=== PATIENT | male | born 1970 | race Caucasian/White ===

== ENCOUNTER 2022-02-20 05:11 | Emergency (ER) | payer OTHER, SELFPAY ==
--- NOTE | ~2022-02-20 | CT_ITS ---
EXAMINATION: CT ABDOMEN AND PELVIS WITHOUT CONTRAST CLINICAL INFORMATION: Flank pain. COMPARISON: CT of the abdomen and pelvis done on 10/04/2007. TECHNIQUE: Multidetector volumetric imaging was performed from the superior aspect of the liver through the pubic symphysis. Sagittal and coronal reformatted images were obtained on the technologist's workstation. This CT examination was performed using dose optimization techniques as appropriate, variously including the following: *Automated exposure control *Adjustment of mA and/or kV according to patient size (this includes techniques or standardized protocols for targeted exams where dose is matched to indication/reason for exam; i.e. extremities or head) *Use of iterative reconstruction technique DLP: 1300 mGy-cm FINDINGS: LUNG BASES: The visualized lung bases are unremarkable. LIVER, GALLBLADDER, AND BILIARY TREE: Diffuse hepatic hypodensity consistent with hepatic steatosis is present. No superimposed focal liver lesion on this nonenhanced study. Tiny wall calcifications versus calculi are seen within the gallbladder, new since prior study. No evidence of any gallbladder wall thickening or pericholecystic fluid or features of biliary obstruction. PANCREAS: Unremarkable. SPLEEN: Unremarkable. ADRENAL GLANDS: Unremarkable. KIDNEYS AND URETERS: The right kidney is normal in size, shape, and attenuation. No hydronephrosis, hydroureter, or calculi seen. No perinephric stranding. There is a 0.6 cm maximum dimension radiopaque calculus seen within the mid left ureter at the level of superior endplate of L5 vertebral body with maximum Hounsfield value of 777, producing proximal mild to moderate hydroureteronephrosis. An additional tiny punctate millimeter size nonobstructing calculus is also noted at the superior calyx of the left kidney. Mild perinephric stranding is present. BLADDER: Unremarkable. GASTROINTESTINAL TRACT: Focal colonic wall thickening and underlying colonic diverticuli are present involving the proximal sigmoid colon, consistent with diverticulosis. No superimposed CT evidence of focal diverticulitis. Significant fecal residual is noted within the large bowel. The appendix is visualized at right iliac fossa and is morphologically unremarkable. The small bowel loops are decompressed. Small sliding hiatal hernia is present. The stomach is decompressed. ABDOMINAL WALL: No significant hernia is appreciated. LYMPH NODES: Normal. VASCULAR: Unremarkable. PELVIC VISCERA: Unremarkable. OSSEOUS STRUCTURES: Unremarkable. CT/CT abdomen pelvis wo con IMPRESSION: 1. There is a 0.6 cm maximum dimension radiopaque calculus seen within the mid left ureter at the level of superior endplate of L5 vertebral body with maximum Hounsfield value of 777, producing proximal mild to moderate left-sided hydroureteronephrosis and mild perinephric stranding. Note is also made of additional 1 mm tiny punctate nonobstructing calculus seen at the superior calyx of the left kidney. 2. No other radiopaque urinary tract calculi within the remainder of the urinary tract on either side including the bladder. 3. Diffuse hepatic hypodensity consistent with fatty liver. 4. Tiny wall calcifications versus calculi within the gallbladder, new since prior study dated 10/04/2007. 5. Colonic diverticulosis without any CT features of superimposed acute diverticulitis. Fleischner guidelines were followed.
[2022-02-20 05:21] VITALS: BP 189/97; PULSE 96; RESP 20; TEMP 36.9; O2SAT 100; BMI 100.9
[2022-02-20 05:29] LABS: Hematocrit 42.2 % (42.0-52.0); Hemoglobin 14.7 g/dl (14.0-18.0); Mean Corpuscular HGB Conc 34.8 g/dl (31.0-36.0); Mean Corpuscular Hemoglobin 29.2 pg (27.0-33.0); Mean Corpuscular Volume 83.9 fL (80.0-98.0); Platelet Count 274 X10*3/uL (160-400); Red Blood Count 5.03 X10*6/uL (4.60-5.80); Red Cell Distribution Width 12.7 % (11.0-16.0); White Blood Count 10.9 X10*3/uL (4.8-10.8)
[2022-02-20 05:42] LABS: Appearance Urine CLEAR; Color Urine YELLOW; Glucose Urine UA NEG (NEG); Leukocyte Esterase Urine NEG (NEG); Nitrite Urine NEG (NEG); Specific Gravity - Urine >= 1.030 (1.005-1.025); UACC Culture Trigger NO; Urine Blood 3+ (NEG); Urine Ketones NEG (NEG); Urine Protein 1+ MG/DL (NEG-TRACE)
[2022-02-20 05:43] LABS: Alanine Aminotransferase 35 U/L (0-40); Albumin Level 4.2 g/dL (3.5-5.0); Alkaline Phosphatase 94 U/L (39-117); Anion Gap 17 (12-20); Aspartate Amino Transferase 24 U/L (5-37); Bilirubin Total 0.6 mg/dL (0.0-1.0); Blood Urea Nitrogen 22 mg/dL (9-16); Calcium 9.2 mg/dL (8.4-10.2); Carbon Dioxide 27 mmol/L (22-29); Chloride 98 mmol/L (96-108); Estimated Glomerular Filt Rate 59; Glucose Random 117 mg/dL (60-115); Lipase 61 U/L (8-78); Potassium 3.1 mmol/L (3.3-5.1); Sodium 139 mmol/L (135-145); Total Protein 7.7 g/dL (6.5-8.0)
[2022-02-20 05:49] LABS: Bacteria Urine 1+ /LPF; Squamous Epithelial Cell Urine 1+ /LPF
[2022-02-20] MEDS: Ondansetron ODT 4 MG TAB.RAPDIS TRANSLINGU (07:37)
[2022-02-20] MEDS: Ibuprofen 600 MG TABLET PO (07:37)
--- NOTE | 2022-02-20 08:12 | ED_ITS ---
HPI - Abdominal Pain General Chief Complaint: Abdominal Pain Stated Complaint: Back pain, radiates down body Time Seen by Provider: 02/20/22 08:03 Source: patient Mode of arrival: ambulatory Limitations: no limitations History of Present Illness HPI narrative: 51-year-old male with history of hypertension, high cholesterol presents with left-sided flank pain with radiation into the left testicle with waking today. Patient denies any associated nausea, vomiting, diarrhea, fevers, chills, urinary symptoms. Patient was over the last 2 weeks he has had intermittent left-sided back pain which seems to last for several minutes to 1 hour but then resolved without intervention. Related Data Previous Rx's Medication Instructions Recorded ibuprofen 800 mg tablet 800 mg PO Q8H PRN pain #30 tabs 02/20/22 tamsulosin 0.4 mg capsule (Flomax) 0.4 mg PO DAILY #30 caps 02/20/22 Allergies Allergy/AdvReac Type Severity Reaction Status Date / Time penicillin G [Penicillin G] Allergy Mild UNKNOWN Unverified 03/25/20 15:16 Review of Systems Review of Systems Yes all other systems are reviewed and are negative Constitutional: Reports no additional constitutional complaints, Denies body ache(s), Denies chills, Denies fever(s), Denies headache(s) and Denies weakness Eyes: Reports no additional eye complaints and Denies change in vision Reports system reviewed and no additional complaints, except as documented, Denies dizziness, Denies headache(s), Denies nasal congestion, Denies nasal discharge and Denies neck pain Cardiovascular: Reports no additional cardiovascular complaints, Denies chest pain, Denies leg edema and Denies dyspnea Respiratory: Reports no additional respiratory complaints, Denies cough and Denies dyspnea Gastrointestinal: Reports no additional gastrointestinal complaints, Denies abdominal pain, Denies diarrhea, Denies nausea and Denies vomiting Genitourinary: Reports flank pain, Reports testicular pain and Denies urinary incontinence Musculoskeletal: Reports no additional musculoskeletal complaints, Reports back pain, Denies arthralgias, Denies joint swelling, Denies neck pain, Denies numbness and Denies tingling Skin/Breast: Reports system reviewed and no additional complaints, except as docu and Denies rash Reports system reviewed and no additional complaints, except as documented, Denies dizziness, Denies headache(s), Denies numbness, Denies tingling and Denies weakness PMFSH Past Medical History Attestation statement: The following information was validated with the patient. Source: old records reviewed and nursing notes reviewed Social History Social History Advance Directives: Yes Advance Directives Information Provided: Yes Advance Directives on File: No Physical Exam ED Vital Signs: Vital Signs - 24 hr 02/20/22 05:21 Temperature 98.5 F Pulse Rate 96 Respiratory Rate 20 Blood Pressure 189/97 H Pulse Oximetry 100 Oxygen Delivery Method Room Air BMI result Body Mass Index 100.9 Const General: cooperative, healthy appearing, comfortable and no acute distress Orientation/consciousness: patient oriented x3 Limitations: no limitations HENMT Head: Yes normal to inspection Ears: hearing grossly normal bilaterally Eyes General: appearance normal, both eyes and all related structures Pupils: Equal, round and reactive pupils present Neck Neck: Yes normal visual inspection, Yes full ROM, Yes no lymphadenopathy and Yes no meningeal signs Chest Chest palpation & inspection: normal inspection of the chest Resp Effort & Inspection: normal respiratory effort Cardio Peripheral pulses: Peripheral pulses 2+ throughout GI Inspection: Yes normal to inspection Palpation (GI): Soft to palpation and nontender General: Yes CVA tenderness on the left Back/Spine/Pelvis Back: CVA tenderness Skin General skin exam: no rashes or lesions noted Neuro General: patient oriented x3, moves all extremities and no meningeal signs Cranial nerves: Yes Equal, round and reactive pupils present Extrem General: Yes normal to inspection Course Course Course Narrative: CT shows There is a 0.6 cm maximum dimension radiopaque calculus seen within the mid left ureter at the level of superior endplate of L5 vertebral body with maximum Hounsfield value of 777, producing proximal mild to moderate left-sided hydroureteronephrosis and mild perinephric stranding. Note is also made of additional 1 mm tiny punctate nonobstructing calculus seen at the superior calyx of the left kidney. - labs show mild hypokalemia which is likely secondary to diuretic use. P atient received oral replacement. All other labs are unremarkable. Urine shows microscopic hematuria with no signs of infection. Patient's pain is resolved after receiving 600 mg of oral ibuprofen. tolerating p.o.. afebrile. I discussed the findings of the CT scan with the patient as well as Urology Dr. Woods. patient can follow-up in the office with Urology outpatient. reviewed worrisome signs and symptoms with the patient such as fever, severe pain, intractable vomiting and when to return to the emergency room. Comfortable plan for discharge home MDM - Abdominal Pain MDM Narrative Medical decision making narrative: 51-year-old male with history of hypertension and hyperlipidemia presents with left-sided flank pain with radiation to the left testicle with waking this morning. No associated symptoms. Patient on exam has left CVA tenderness. Deferred exam. Vitals are stable. Abdomen soft nontender. Will need labs, UA, CT. Patient will be given IV fluids, NSAID Differential Diagnosis Differential diagnosis: Likely renal colic Medical Records Attestation: I reviewed the patient's medical records. Lab Data Attestation: I reviewed the patient's lab results. Result diagrams: 02/20/22 05:19 02/20/22 05:19 Labs: Lab Results 02/20/22 02/20/22 02/20/22 Range/Units 05:19 05:19 05:26 WBC 10.9 H (4.8-10.8) X10*3/uL RBC 5.03 (4.60-5.80) X10*6/uL Hgb 14.7 (14.0-18.0) g/dl Hct 42.2 (42.0-52.0) % MCV 83.9 (80.0-98.0) fL MCH 29.2 (27.0-33.0) pg MCHC 34.8 (31.0-36.0) g/dl RDW 12.7 (11.0-16.0) % Plt Count 274 (160-400) X10*3/uL MPV 10.0 (9.4-12.4) fL Absolute Nucleated RBC 0.000 (0.0-0.012) X10*3/uL Nucleated RBC % (auto) 0.0 (0.0-0.2) /100WBC Sodium 139 (135-145) mmol/L Potassium 3.1 L (3.3-5.1) mmol/L Chloride 98 (96-108) mmol/L Carbon Dioxide 27 (22-29) mmol/L Anion Gap 17 (12-20) BUN 22 H (9-16) mg/dL Creatinine 1.29 (0.5-1.4) mg/dL Estim Creat Clear Calc 163.0 Estimated GFR 59 Random Glucose 117 H (60-115) mg/dL Calcium 9.2 (8.4-10.2) mg/dL Total Bilirubin 0.6 (0.0-1.0) mg/dL AST 24 (5-37) U/L ALT 35 (0-40) U/L Alkaline Phosphatase 94 (39-117) U/L Total Protein 7.7 (6.5-8.0) g/dL Albumin 4.2 (3.5-5.0) g/dL Lipase 61 (8-78) U/L Urine Color YELLOW Urine Appearance CLEAR Urine pH 6.0 (5.0-8.0) Ur Specific [place] >= 1.030 H (1.005-1.025) Urine Protein 1+ H (NEG-TRACE) MG/DL Urine Glucose (UA) NEG (NEG) MG/DL Urine Ketones NEG (NEG) MG/DL Urine Blood 3+ H (NEG) Urine Nitrite NEG (NEG) Ur Leukocyte Esterase NEG (NEG) Urine RBC 10-14 H (0) /HPF Urine WBC 1-4 (0-4) /HPF Ur Squamous Epith Cells 1+ /LPF Urine Bacteria 1+ /LPF Imaging Data CT scan - abdomen: Attestation: I personally reviewed and interpreted this imaging study as follows: Radiologist's impression: [place] [id number] CT Scan Report Signed Patient: Frank Terrell MR#: [id number] : 1970 Acct:[id number] Age/Sex: 51 / M ADM Date: 02/20/22 Loc: .ED Attending Dr: Ordering Physician: Jeanine Mcduffie NP Date of Service: 02/20/22 Procedure(s): CT abdomen pelvis wo [facility] Accession Number(s): [id number] cc: Jeanine Mcduffie NP~ EXAMINATION: CT ABDOMEN AND PELVIS WITHOUT CONTRAST? CLINICAL INFORMATION: Flank pain.? COMPARISON: CT of the abdomen and pelvis done on 10/04/2007. TECHNIQUE: Multidetector volumetric imaging was performed from the superior aspect of the liver through the pubic symphysis. Sagittal and coronal reformatted images were obtained on the technologist's workstation.? This CT examination was performed using dose optimization techniques as appropriate, variously including the following: *Automated exposure control *Adjustment of mA and/or kV according to patient size (this includes techniques or standardized protocols for targeted exams where dose is matched to indication/reason for exam; i.e. extremities or head) *Use of iterative reconstruction technique DLP: 1300 mGy-cm FINDINGS: LUNG BASES: The visualized lung bases are unremarkable.? LIVER, GALLBLADDER, AND BILIARY TREE: Diffuse hepatic hypodensity consistent with hepatic steatosis is present. No superimposed focal liver lesion on this nonenhanced study. Tiny wall calcifications versus calculi are seen within the gallbladder, new since prior study. No evidence of any gallbladder wall thickening or pericholecystic fluid or features of biliary obstruction. PANCREAS: Unremarkable.? SPLEEN: Unremarkable.? ADRENAL GLANDS: Unremarkable.? KIDNEYS AND URETERS: The right kidney is normal in size, shape, and attenuation. No hydronephrosis, hydroureter, or calculi seen. No perinephric stranding.? There is a 0.6 cm maximum dimension radiopaque calculus seen within the mid left ureter at the level of superior endplate of L5 vertebral body with maximum Hounsfield value of 777, producing proximal mild to moderate hydroureteronephrosis. An additional tiny punctate millimeter size nonobstructing calculus is also noted at the superior calyx of the left kidney. Mild perinephric stranding is present. BLADDER: Unremarkable.? GASTROINTESTINAL TRACT: Focal colonic wall thickening and underlying colonic diverticuli are present involving the proximal sigmoid colon, consistent with diverticulosis. No superimposed CT evidence of focal diverticulitis. Significant fecal residual is noted within the large bowel. The appendix is visualized at right iliac fossa and is morphologically unremarkable. The small bowel loops are decompressed. Small sliding hiatal hernia is present. The stomach is decompressed.? ABDOMINAL WALL: No significant hernia is appreciated.? LYMPH NODES: Normal. VASCULAR: Unremarkable. PELVIC VISCERA: Unremarkable.? OSSEOUS STRUCTURES: Unremarkable.? CT/CT abdomen pelvis wo con IMPRESSION: ? 1. There is a 0.6 cm maximum dimension radiopaque calculus seen within the mid left ureter at the level of superior endplate of L5 vertebral body with maximum Hounsfield value of 777, producing proximal mild to moderate left-sided hydroureteronephrosis and mild perinephric stranding. Note is also made of additional 1 mm tiny punctate nonobstructing calculus seen at the superior calyx of the left kidney. 2. No other radiopaque urinary tract calculi within the remainder of the urinary tract on either side including the bladder. 3. Diffuse hepatic hypodensity consistent with fatty liver. 4. Tiny wall calcifications versus calculi within the gallbladder, new since prior study dated 10/04/2007. 5. Colonic diverticulosis without any CT features of superimposed acute diverticulitis.? Discharge Plan Discharge Clinical Impression: Calculus of kidney Patient Disposition: Home, Self-Care Instructions: Kidney Stones (ED) Additional Instructions: call you the urologist for follow-up return for fever, multiple episodes of vomiting, severe pain Prescriptions: New tamsulosin [Flomax] 0.4 mg capsule 0.4 mg PO DAILY Qty: 30 0RF ibuprofen 800 mg tablet 800 mg PO Q8H PRN (Reason: pain) Qty: 30 0RF Referrals: aDljit Woods MD [Physician] - 5 days Stand Alone Forms: Work/School Release Interventions: ED Discharge Assessment Last Done: 02/20/22 10:07 Discharge Date/Time: 02/20/22 10:08
[2022-02-20] MEDS: 0.9 % Sodium Chloride 1,000 ML 999 ML IV (09:15)
[2022-02-20] MEDS: Potassium Chloride ER 20 MEQ TAB.ER.PRT 40 MEQ PO (09:20)
== END 2022-02-20 10:08 | disposition home or self-care (01) ==
PROVIDERS: Emergency Provider Emergency Medicine
DX: N13.2 Hydronephrosis with renal and ureteral calculous obstruction (principal); E87.6 Hypokalemia; I10 Essential (primary) hypertension; E78.5 Hyperlipidemia, unspecified; E66.01 Morbid (severe) obesity due to excess calories; Z68.45 Body mass index [BMI] 70 or greater, adult
CPT/HCPCS: 36415; 74176; 80053; 81001; 83690; 85027; 99283; 99284

== ENCOUNTER 2022-02-27 06:11 | Day surgery (SDC) | payer OTHER, SELFPAY ==
[2022-02-27] VITALS (12 sets, daily range): BP systolic 142–193; BP diastolic 71–97; PULSE 54–78; RESP 15–20; TEMP 36.1–36.6; O2SAT 93–98; BMI 45.8
--- NOTE | ~2022-02-27 | CT_ITS ---
EXAMINATION: CT ABDOMEN AND PELVIS WITHOUT CONTRAST CLINICAL INFORMATION: Left flank pain, rule out stone. COMPARISON: 02/20/2022 CT scan of the abdomen and pelvis. TECHNIQUE: Multidetector volumetric imaging was performed from the superior aspect of the liver through the pubic symphysis. Sagittal and coronal reformatted images were obtained on the technologist's workstation. Lack of intravenous and oral contrast limits visceral evaluation. This CT examination was performed using dose optimization techniques as appropriate, variously including the following: *Automated exposure control *Adjustment of mA and/or kV according to patient size (this includes techniques or standardized protocols for targeted exams where dose is matched to indication/reason for exam; i.e. extremities or head) *Use of iterative reconstruction technique DLP: 1141 mGy-cm FINDINGS: LUNG BASES: The visualized lung bases are unremarkable. LIVER, GALLBLADDER, AND BILIARY TREE: Unremarkable. PANCREAS: Unremarkable. SPLEEN: Unremarkable. ADRENAL GLANDS: Unremarkable. KIDNEYS AND URETERS: Left kidney mild to moderate left hydronephrosis and perinephric stranding caused by a 0.9 cm calculus (HU 694) in the mid one third of the left ureter (image 68, series 5). No intrarenal calculi bilaterally. No right hydronephrosis. BLADDER: Moderate distention without focal abnormality. GASTROINTESTINAL TRACT: The stomach, small bowel and appendix are unremarkable. The colon shows mild diverticulosis distally without surrounding abnormality. The rectum is unremarkable. ABDOMINAL WALL: No significant hernia is appreciated. LYMPH NODES: No lymphadenopathy. VASCULAR: Unremarkable. PELVIC VISCERA: Mild prostatomegaly and mild central coarse calcifications. OSSEOUS STRUCTURES: Mild disc space narrowing and mild grade 1 retrolisthesis of L5-S1 without other significant abnormality. CT/CT abdomen pelvis wo con IMPRESSION: 1. Mild to moderate left hydroureteronephrosis and perinephric stranding caused by a 0.9 cm calculus in the mid one third of the left ureter. Findings have not significantly changed from the 02/20/2022 study. 2. Mild distal colonic diverticulosis without evidence for acute diverticulitis.
[2022-02-27 08:05] LABS: Appearance Urine Clear; Color Urine Yellow; Glucose Urine UA Negative (Negative); Leukocyte Esterase Urine Negative (Negative); Nitrite Urine Negative (Negative); Specific Gravity - Urine 1.015 (1.005-1.025); Urine Blood Small (1+) (Negative); Urine Ketones Negative (Negative); Urine Protein Negative (Neg-Trace)
[2022-02-27 08:08] LABS: Bacteria Urine None Seen (None Seen); Hyaline Casts Urine 0-2 /LPF (0-2); Squamous Epithelial Cell Urine 0-2 /HPF (0-2); WBC Urine 0-5 /HPF (0-5)
[2022-02-27 09:13] LABS: Basophils Absolute Auto 0.1 X10*3/uL (0.0-0.2); Basophils Percent Auto 0.4 % (0-2); Eosinophils Absolute Auto 0.1 X10*3/uL (0.0-0.4); Eosinophils Percent Auto 0.5 % (0-4); Hematocrit 42.5 % (42.0-52.0); Hemoglobin 14.7 g/dl (14.0-18.0); Imm Gran Abs Auto 0.09 X10*3/uL (0.00-0.03); Imm Gran Pct Auto 0.6 % (0.0-0.4); Lymphocytes Absolute Auto 2.4 X10*3/uL (1.2-4.9); Lymphocytes Percent Auto 16.2 % (20-40); MANUAL DIFF FLAG SCAN; Mean Corpuscular HGB Conc 34.6 g/dl (31.0-36.0); Mean Corpuscular Hemoglobin 29.1 pg (27.0-33.0); Mean Corpuscular Volume 84.2 fL (80.0-98.0); Monocytes Absolute Auto 1.5 X10*3/uL (0.1-1.2); Monocytes Percent Auto 10.5 % (2-11); Neutrophils Absolute Auto 10.4 x10*3/uL (2.0-8.3); Neutrophils Percent Auto 71.8 % (45-73); Platelet Count 262 X10*3/uL (160-400); Red Blood Count 5.05 X10*6/uL (4.60-5.80); SCAN SMEAR FLAG 1; White Blood Count 14.5 X10*3/uL (4.8-10.8)
--- NOTE | 2022-02-27 09:30 | ED.ABDPAIN ---
HPI - Abdominal Pain General Chief Complaint: Abdominal Pain Stated Complaint: kidney stone Time Seen by Provider: 02/27/22 08:20 Source: patient Mode of arrival: ambulatory History of Present Illness HPI narrative: Patient presented with left flank pain, he was seen in this emergency department on February 20 diagnosed with the left kidney stone, pain is no better. Denies any fever and chills MD elicited complaint: flank pain Pertinent past history: none Onset (ago): week(s) (1) Pain Consistency: constant Location: L flank Severity: moderate Radiation: none Exacerbating factors: nothing Relieving factors: nothing Related Data Previous Rx's Medication Instructions Recorded ibuprofen 800 mg tablet 800 mg PO Q8H PRN pain #30 tabs 02/20/22 prednisone 20 mg tablet 20 mg PO DAILY 5 days #5 tabs 02/20/22 tamsulosin 0.4 mg capsule (Flomax) 0.4 mg PO DAILY #30 caps 02/20/22 Allergies Allergy/AdvReac Type Severity Reaction Status Date / Time penicillin G [Penicillin G] Allergy Mild UNKNOWN Verified 02/27/22 09:49 Review of Systems Review of Systems Yes all other systems are reviewed and are negative Cardiovascular: Reports no additional cardiovascular complaints Respiratory: Reports no additional respiratory complaints Gastrointestinal: Reports no additional gastrointestinal complaints Musculoskeletal: Reports no additional musculoskeletal complaints PMF Social History Social History Alcohol intake: current Alcohol intake frequency: a few times a week Patient Tobacco Use Status: Never used Tobacco Use of substances other than those prescribed or required for medical reasons: No Advance Directives: Yes Advance Directives Information Provided: No Advance Directives on File: No Physical Exam ED Vital Signs: Vital Signs - 24 hr 02/27/22 06:43 02/27/22 10:00 02/27/22 10:43 Temperature 97.7 F Pulse Rate 73 60 58 Respiratory Rate 16 18 16 Blood Pressure 150/84 H 170/97 H 168/84 H Pulse Oximetry 96 97 98 Oxygen Delivery Method Room Air Room Air Room Air 02/27/22 12:53 Temperature Pulse Rate 62 Respiratory Rate 16 Blood Pressure 161/72 H Pulse Oximetry 98 Oxygen Delivery Method Room Air BMI result Body Mass Index 45.8 Const General: cooperative HENMT Head: Yes normal to inspection General nose exam: Normal external nose present Face and sinus: Yes normal facial exam Mouth: Normal oral and palatal mucosa present Throat: Yes posterior oropharynx normal Neck Neck: Yes normal visual inspection and Yes full ROM Chest Chest palpation & inspection: normal inspection of the chest Resp Effort & Inspection: normal respiratory effort Auscultation: clear to auscultation bilaterally Cardio Jugular venous distension: no JVD Rate: regular rate Rhythm: regular rhythm GI Inspection: Yes normal to inspection Palpation (GI): Soft to palpation and Other GI palpation findings present (tenderness left flank) Auscultation: normal bowel sounds Course Reevaluation(s) Reevaluation #1: d/w Dr Woods will take pt to OR MDM - Abdominal Pain Lab Data Result diagrams: 02/27/22 09:04 02/27/22 09:04 Labs: Lab Results 02/27/22 02/27/22 02/27/22 Range/Units 07:42 09:04 09:04 WBC 14.5 H (4.8-10.8) X10*3/uL RBC 5.05 (4.60-5.80) X10*6/uL Hgb 14.7 (14.0-18.0) g/dl Hct 42.5 (42.0-52.0) % MCV 84.2 (80.0-98.0) fL MCH 29.1 (27.0-33.0) pg MCHC 34.6 (31.0-36.0) g/dl RDW 13.0 (11.0-16.0) % Plt Count 262 (160-400) X10*3/uL MPV 10.0 (9.4-12.4) fL Immature Gran % (Auto) 0.6 H (0.0-0.4) % Neut % (Auto) 71.8 (45-73) % Lymph % (Auto) 16.2 L (20-40) % [place] % (Auto) 10.5 (2-11) % Eos % (Auto) 0.5 (0-4) % Baso % (Auto) 0.4 (0-2) % Lymph # (Auto) 2.4 (1.2-4.9) X10*3/uL [place] # (Auto) 1.5 H (0.1-1.2) X10*3/uL Eos # (Auto) 0.1 (0.0-0.4) X10*3/uL Baso # (Auto) 0.1 (0.0-0.2) X10*3/uL Abs Immat Gran (auto) 0.09 H (0.00-0.03) X10*3/uL Absolute Neuts (auto) 10.4 H (2.0-8.3) x10*3/uL Absolute Nucleated RBC 0.000 (0.0-0.012) X10*3/uL Nucleated RBC % (auto) 0.0 (0.0-0.2) /100WBC Smear Tech's Comments VERIFIED Sodium 141 (135-145) mmol/L Potassium 3.5 (3.3-5.1) mmol/L Chloride 97 (96-108) mmol/L Carbon Dioxide 32 H (22-29) mmol/L Anion Gap 16 (12-20) BUN 21 H (9-16) mg/dL Creatinine 1.41 H (0.5-1.4) mg/dL Estim Creat Clear Calc 87.4 Estimated GFR 53 Random Glucose 114 (60-115) mg/dL Calcium 10.6 H D (8.4-10.2) mg/dL Urine Color Yellow Urine Appearance Clear Urine pH 7.0 (5.0-8.0) Ur Specific [place] 1.015 (1.005-1.025) Urine Protein Negative (Neg-Trace) mg/dL Urine Glucose (UA) Negative (Negative) mg/dL Urine Ketones Negative (Negative) mg/dL Urine Blood Small (1+) H (Negative) Urine Nitrite Negative (Negative) Ur Leukocyte Esterase Negative (Negative) Urine RBC 6-10 H (0-2) /HPF Urine WBC 0-5 (0-5) /HPF Ur Squamous Epith Cells 0-2 (0-2) /HPF Urine Bacteria None Seen (None Seen) Hyaline Casts 0-2 (0-2) /LPF 02/27/ Range/Units 09:59 WBC (4.8-10.8) X10*3/uL RBC (4.60-5.80) X10*6/uL Hgb (14.0-18.0) g/dl Hct (42.0-52.0) % MCV (80.0-98.0) fL MCH (27.0-33.0) pg MCHC (31.0-36.0) g/dl RDW (11.0-16.0) % Plt Count (160-400) X10*3/uL MPV (9.4-12.4) fL Immature Gran % (Auto) (0.0-0.4) % Neut % (Auto) (45-73) % Lymph % (Auto) (20-40) % [place] % (Auto) (2-11) % Eos % (Auto) (0-4) % Baso % (Auto) (0-2) % Lymph # (Auto) (1.2-4.9) X10*3/uL [place] # (Auto) (0.1-1.2) X10*3/uL Eos # (Auto) (0.0-0.4) X10*3/uL Baso # (Auto) (0.0-0.2) X10*3/uL Abs Immat Gran (auto) (0.00-0.03) X10*3/uL Absolute Neuts (auto) (2.0-8.3) x10*3/uL Absolute Nucleated RBC (0.0-0.012) X10*3/uL Nucleated RBC % (auto) (0.0-0.2) /100WBC Smear Tech's Comments Sodium (135-145) mmol/L Potassium (3.3-5.1) mmol/L Chloride (96-108) mmol/L Carbon Dioxide (22-29) mmol/L Anion Gap (12-20) BUN (9-16) mg/dL Creatinine (0.5-1.4) mg/dL Estim Creat Clear Calc Estimated GFR Random Glucose (60-115) mg/dL Calcium (8.4-10.2) mg/dL Urine Color Yellow Urine Appearance Clear Urine pH 7.5 (5.0-8.0) Ur Specific [place] 1.010 (1.005-1.025) Urine Protein Negative (Neg-Trace) mg/dL Urine Glucose (UA) Negative (Negative) mg/dL Urine Ketones Negative (Negative) mg/dL Urine Blood Negative (Negative) Urine Nitrite Negative (Negative) Ur Leukocyte Esterase Negative (Negative) Urine RBC 0-2 (0-2) /HPF Urine WBC 0-5 (0-5) /HPF Ur Squamous Epith Cells 0-2 (0-2) /HPF Urine Bacteria None Seen (None Seen) Hyaline Casts 0-2 (0-2) /LPF Imaging Data CT scan - abdomen: Radiologist's impression: rkable.? ABDOMINAL WALL: No significant hernia is appreciated.? LYMPH NODES: No lymphadenopathy. VASCULAR: Unremarkable. PELVIC VISCERA: Mild prostatomegaly and mild central coarse calcifications.? OSSEOUS STRUCTURES: Mild disc space narrowing and mild grade 1 retrolisthesis of L5-S1 without other significant abnormality.? CT/CT abdomen pelvis wo con IMPRESSION: 1. Mild to moderate left hydroureteronephrosis and perinephric stranding caused by a 0.9 cm calculus in the mid one third of the left ureter. Findings have not significantly changed from the 02/20/2022 study. 2. Mild distal colonic diverticulosis without evidence for acute diverticulitis. ? ? Dictated By: Arnulfo Mandel MD Signed By: <Electronically signed by Arnulfo Madnel MD in [place]> 02/27/22 1105 DD/ 0945 TD/TT:? Assembly Technician: Discharge Plan Discharge Clinical Impression: Ureteric stone Patient Disposition: Admitted As Inpatient
[2022-02-27 09:31] LABS: SLIDE REVIEW VERIFIED
[2022-02-27 09:35] LABS: Anion Gap 16 (12-20); Blood Urea Nitrogen 21 mg/dL (9-16); Calcium 10.6 mg/dL (8.4-10.2); Carbon Dioxide 32 mmol/L (22-29); Chloride 97 mmol/L (96-108); Creatinine Clr Calc Pharmacy 87.4; Estimated Glomerular Filt Rate 53; Glucose Random 114 mg/dL (60-115); Potassium 3.5 mmol/L (3.3-5.1); Sodium 141 mmol/L (135-145)
[2022-02-27] MEDS: Ketorolac Tromethamine 30 MG/ML VIAL IVPUSH (09:57)
[2022-02-27 10:09] LABS: Appearance Urine Clear; Color Urine Yellow; Glucose Urine UA Negative (Negative); Leukocyte Esterase Urine Negative (Negative); Nitrite Urine Negative (Negative); PH 7.5 (5.0-8.0); Urine Blood Negative (Negative); Urine Ketones Negative (Negative); Urine Protein Negative (Neg-Trace)
[2022-02-27 10:11] LABS: Bacteria Urine None Seen (None Seen); Hyaline Casts Urine 0-2 /LPF (0-2); RBC Urine 0-2 /HPF (0-2); Squamous Epithelial Cell Urine 0-2 /HPF (0-2); WBC Urine 0-5 /HPF (0-5)
[2022-02-27] MEDS: 0.9 % Sodium Chloride 1,000 ML 999 ML IVCONT (10:40)
--- NOTE | 2022-02-27 12:33 | P.CNUR_ITS ---
History of Present Illness Consult details Consult date: 02/27/22 Narrative: Consulting complaint left ureteric stone mid 52-year-old male. Presents with left flank pain. [place] Seen February 20 with kidney stone. Attempted medical expulsion therapy. Pain has not improved. Maximum 8 on 10. Minimal radiation. Has been constant. Associated nausea. No fever or vomiting. Denies hematuria or dysuria. WBC 14.5, calcium 10.6, creatinine 1.4 - these are elevated from baseline CT scan performed Left kidney mild to moderate left hydronephrosis and perinephric stranding caused by a 0.9 cm calculus (HU 694) in the mid one third of the left ureter (image 68, series 5). No intrarenal calculi bilaterally. No right hydronephrosis. Review of Systems Constitutional: Constitutional: Reports as per HPI and Reports no additional constitutional complaints Cardiovascular: Cardiovascular: Reports as per HPI and Reports no additional cardiovascular complaints Respiratory: Respiratory: Reports as per HPI and Reports no additional respiratory complaints Gastrointestinal: Gastrointestinal: Reports as per HPI and Reports no additional gastrointestinal complaints Genitourinary: Genitourinary: Reports as per HPI Musculoskeletal: Musculoskeletal: Reports no additional musculoskeletal complaints and Reports as per HPI Neurologic: Reports system reviewed and no additional complaints, except as documented and Reports as per HPI [facility] Social History Social History Advance Directives: Yes Advance Directives Information Provided: No Advance Directives on File: No Meds Allergies Allergy/AdvReac Type Severity Reaction Status Date / Time penicillin G [Penicillin G] Allergy Mild UNKNOWN Verified 02/27/22 09:49 Physical Exam Vital Signs: Vital Signs: Last Vital Signs Temp 97.7 F 02/27/22 06:43 Pulse 58 02/27/22 10:43 Resp 16 02/27/22 10:43 BP 168/84 H 02/27/22 10:43 Pulse Ox 98 02/27/22 10:43 O2 Del Method 02/27/22 10:43 BMI result Body Mass Index 45.8 Const: General: cooperative, healthy appearing, comfortable and no acute distress Orientation/consciousness: patient oriented x3 HEENT: Face and sinus: Yes normal facial exam Mouth: moist mucous membranes Neck: Neck: Yes normal visual inspection, Yes full ROM and Yes trachea midline Chest: Chest palpation & inspection: normal inspection of the chest Resp: Effort & Inspection: normal respiratory effort, able to speak in complete sentences and no respiratory distress GI: Inspection: Yes normal to inspection Back/Spine/Pelvis: Cervical Spine: normal cervical lordosis Thoracic/Lumbar Spine: thoracic and lumbar spine normal to inspection Skin: General skin exam: no rashes or lesions noted Neuro: General: patient oriented x3, tone normal and moves all extremities Extrem: General: Yes normal to inspection and Yes capillary refill normal Results Labs Result diagrams: 02/27/22 09:04 02/27/22 09:04 Labs: Abnormal lab results 02/27/22 02/27/22 02/27/22 Range/Units 07:42 09:04 09:04 WBC 14.5 H (4.8-10.8) X10*3/uL Immature Gran % (Auto) 0.6 H (0.0-0.4) % Lymph % (Auto) 16.2 L (20-40) % [place] # (Auto) 1.5 H (0.1-1.2) X10*3/uL Abs Immat Gran (auto) 0.09 H (0.00-0.03) X10*3/uL Absolute Neuts (auto) 10.4 H (2.0-8.3) x10*3/uL Carbon Dioxide 32 H (22-29) mmol/L BUN 21 H (9-16) mg/dL Creatinine 1.41 H (0.5-1.4) mg/dL Calcium 10.6 H D (8.4-10.2) mg/dL Urine Blood Small (1+) H (Negative) Urine RBC 6-10 H (0-2) /HPF Short CBC 02/27/22 Range/Units 09:04 WBC 14.5 H (4.8-10.8) X10*3/uL Hgb 14.7 (14.0-18.0) g/dl Hct 42.5 (42.0-52.0) % Plt Count 262 (160-400) X10*3/uL BMP 02/27/22 09:04 Sodium 141 Potassium 3.5 Chloride 97 Carbon Dioxide 32 H BUN 21 H Creatinine 1.41 H Calcium 10.6 H D Urine 02/27/22 02/27/22 Range/Units 07:42 09:59 Urine Color Yellow Yellow Urine Appearance Clear Clear Urine pH 7.0 7.5 (5.0-8.0) Ur Specific [place] 1.015 1.010 (1.005-1.025) Urine Protein Negative Negative (Neg-Trace) mg/dL Urine Glucose (UA) Negative Negative (Negative) mg/dL All other labs normal. Assessment and Plan (1) Ureteric stone: Status: Acute Plan Ureteroscopy We discussed the nature of the decision and reasonable alternatives for performing the above surgery. Interventions include chemical dissolution, ESWL, ureteroscopy with laser lithotripsy and stent placement, PCNL. Options such as medical therapy were discussed. The relative uncertainties and benefits related to each alternate procedure were adequately discussed. General surgical risks including, but not limited to, pain, bleeding, infection, myocardial infarction, pulmonary embolus, deep vein thrombosis and cerebrovascular accident which may result in further hospitalization were discussed. Full disclosure of the procedure as well as all major risks, benefits and complications were discussed including but not limited to damage to the urethra, bladder and kidney infection, damage to the ureter, stent migration or malpositi on, scarring to the renal pelvis, remnant stone fragments, subsequent stone passage with need for secondary procedures. The overall secondary procedure rate is approximately 10-15%. The success rate of the procedure was discussed. Success of the procedure in the short-term does not necessarily guarantee that long-term success will be maintained. Suitable follow up will need to be maintained. The patient showed understanding of discussion and wishes to proceed with - cystoscopy, retrograde, ureteroscopy, possible lithotripsy/stone basketing and stent on the left side Procedures Date of Service Date of Service: 02/27/22
[2022-02-27] MEDS: HYDROmorphone HCl 0.5 MG/0.5 ML SYRINGE IVPUSH (13:06)
[2022-02-27 14:12] LABS: COVID-19 Test Negative (Negative); IDNOW Serial# 55D5AD1C
--- NOTE | 2022-02-27 14:47 | PHA.MEDREC ---
Pharmacy Consult ? Medication Reconciliation Pharmacy has completed the medication reconciliation.
--- NOTE | 2022-02-27 16:41 | PC.NURSE ---
report to PACU
--- NOTE | 2022-02-27 16:53 | P.CONAN_ITS ---
HPI - Anesthesia Eval Consult details Narrative: Left ureter stone PMFSH Active Problems Active Problems: All Active Problems (Updated 02/27/22 @ 12:59 by Hank Fraire MD) Ureteric stone (Acute) Past Medical History Medical History (Updated 02/27/22 @ 16:55 by Daljit Cheng MD) Hyperlipemia Hypertension Morbid (severe) obesity due to excess calories Family History Family history of problems with anesthesia: No Surgical History History of Problems with Anesthesia: No Social History Social History Alcohol intake: current Alcohol intake frequency: a few times a week Patient Tobacco Use Status: Never used Tobacco Use of substances other than those prescribed or required for medical reasons: No Advance Directives: Yes Advance Directives Information Provided: No Advance Directives on File: No Meds Allergies Allergy/AdvReac Type Severity Reaction Status Date / Time penicillin G [Penicillin G] Allergy Mild UNKNOWN Verified 02/27/22 09:49 Home Medications Medication Instructions Recorded Confirmed Last Taken Type amlodipine 5 mg tablet 1 tab PO DAILY 02/27/22 02/27/22 02/27/22 History atorvastatin 20 mg tablet 1 tab PO DAILY 02/27/22 02/27/22 02/27/22 History clonidine HCl 0.1 mg tablet 1 tab PO BID 02/27/22 02/27/22 02/27/22 History hydrochlorothiazide 25 mg tablet 1 tab PO DAILY 02/27/22 02/27/22 02/27/22 History losartan 100 mg tablet 1 tab PO DAILY 02/27/22 02/27/22 Unknown History Exam Exam Date and Time: February 27, 2022 165 Height,Weight and Vital Signs: Height 5 ft 9 in Weight 140.614 kg Last Vital Signs Temp 97.7 F 02/27/22 06:43 Pulse 54 02/27/22 14:44 Resp 18 02/27/22 14:44 BP 157/80 H 02/27/22 14:44 Pulse Ox 98 02/27/22 14:44 O2 Del Method 02/27/22 14:44 Pertinent Lab Results Pertinent Lab Results: Laboratory Tests 02/27/22 02/27/22 02/27/22 07:42 09:04 09:04 WBC 14.5 H RBC 5.05 Hgb 14.7 Hct 42.5 MCV 84.2 MCH 29.1 MCHC 34.6 RDW 13.0 Plt Count 262 MPV 10.0 Immature Gran % (Auto) 0.6 H Neut % (Auto) 71.8 Lymph % (Auto) 16.2 L [place] % (Auto) 10.5 Eos % (Auto) 0.5 Baso % (Auto) 0.4 Lymph # (Auto) 2.4 [place] # (Auto) 1.5 H Eos # (Auto) 0.1 Baso # (Auto) 0.1 Abs Immat Gran (auto) 0.09 H Absolute Neuts (auto) 10.4 H Absolute Nucleated RBC 0.000 Nucleated RBC % (auto) 0.0 Smear Tech's Comments VERIFIED Sodium 141 Potassium 3.5 Chloride 97 Carbon Dioxide 32 H Anion Gap 16 BUN 21 H Creatinine 1.41 H Estim Creat Clear Calc 87.4 Estimated GFR 53 Random Glucose 114 Calcium 10.6 H D Urine Color Yellow Urine Appearance Clear Urine pH 7.0 Ur Specific [place] 1.015 Urine Protein Negative Urine Glucose (UA) Negative Urine Ketones Negative Urine Blood Small (1+) H Urine Nitrite Negative Ur Leukocyte Esterase Negative Urine RBC 6-10 H Urine WBC 0-5 Ur Squamous Epith Cells 0-2 Urine Bacteria None Seen Hyaline Casts 0-2 COVID-19 (CARITO) COVID-19 Clin Com 02/27/22 02/27/22 09:59 13:49 WBC RBC Hgb Hct MCV MCH MCHC RDW Plt Count MPV Immature Gran % (Auto) Neut % (Auto) Lymph % (Auto) [place] % (Auto) Eos % (Auto) Baso % (Auto) Lymph # (Auto) [place] # (Auto) Eos # (Auto) Baso # (Auto) Abs Immat Gran (auto) Absolute Neuts (auto) Absolute Nucleated RBC Nucleated RBC % (auto) Smear Tech's Comments Sodium Potassium Chloride Carbon Dioxide Anion Gap BUN Creatinine Estim Creat Clear Calc Estimated GFR Random Glucose Calcium Urine Color Yellow Urine Appearance Clear Urine pH 7.5 Ur Specific [place] 1.010 Urine Protein Negative Urine Glucose (UA) Negative Urine Ketones Negative Urine Blood Negative Urine Nitrite Negative Ur Leukocyte Esterase Negative Urine RBC 0-2 Urine WBC 0-5 Ur Squamous Epith Cells 0-2 Urine Bacteria None Seen Hyaline Casts 0-2 COVID-19 (CARITO) Negative COVID-19 Clin Com See Note Airway Mallampati Class: III TM Dist: >3cm Neck ROM: Full Partial: Upper Loose/Missing/Broken Teeth: No Heart: RRR Lungs: CTA Assessment and Plan Assessment Anesthesia Assessment: Anesthesia Plan Discussed and Chart Reviewed Final Anesthetic Review Family History of Problems with Anesthesia: No History of Problems with Anesthesia: No NPO: Yes ASA Class: III and Emergency Final Preanesthetic Review: No Changes in Pt Med Stat, Meds/Allgs Chart Reviewed, Consent Obtained/Reviewed and Anes Risks/Benef Reviewed Patient Risk: Intermediate Procedure Risk: Low Anesthetic Plan Anesthetic Plan: GA Disposition: Standard PACU
--- NOTE | 2022-02-27 17:04 | MHC.SHP ---
Pre-Procedural Eval Section A Date of Service: 02/27/22 The patient is an INPATIENT: No Changes since office visit: No Cold of Flu in the past 2 weeks, No New Medical Problems, No Changes in Medication and No Patient answered all questions The History & Physical has been completed within 30 days and I have reviewed it.: Yes Section B Chief Complaint: kidney stone Allergies: Allergies Allergy/AdvReac Type Severity Reaction Status Date / Time penicillin G [Penicillin G] Allergy Mild UNKNOWN Verified 02/27/22 09:49 Review of Systems Sugical H&P ROS: Negative: Constitution, Cardiovascular, Respiratory, Neurological, Psychiatric, Hem-Onc, Allergic/Immunologic, Gastrointestinal, Genitourinary, Musculoskeletal, Integumentary, Endocrine and Eyes/Ears/Nose/Throat Exam Surgical H&P Exam: Normal: HEENT, Normal: Heart, Normal: Lungs, Normal: Extremities, Normal: Abdomen, Normal: Skin and Normal: Neurological Plan Diagnosis/Plan: Unchanged (left, retotrograde, ureteroscopy, laser) I have reviewed the history and physical and performed a pertinent physical examination on my patient. No changes have occurred unless specified.
--- NOTE | 2022-02-27 18:16 | W.PM.OPN ---
Operative Note Operative Note Date of Service: 02/27/22 Narrative: PreOperative Diagnosis: Left mid ureteric stone Post Operative Diagnosis: Left mid ureteric stone Procedure: - cystoscopy, left retrograde - left dilatation of ureteric orifice under fluoroscopy - left ureteroscopy, laser lithotripsy, stone basketing - left stent placement Surgeon: Dr Daljit Woods Anesthesia: General Indications for procedure: Left mid ureteric stone 2nd presentation to hospital Procedure: After informed consent was verified patient was brought to the operating placed in supine position. Anesthesia was administered per protocol. Patient was placed in modified dorsal lithotomy position and prepped and draped in a sterile fashion. Safety pause time-out and side of surgery confirmed. Antibiotics confirmed. A 22 [place] cystoscope was inserted per urethra. Bladder was normal in its entirety. Both ureteric orifices were in normal position. The left ureteric orifice was cannulated and a retrograde examination was performed. Filling defect left mid ureter . A Sensor guidewire was placed up to the level of the renal pelvis under fluoroscopy. The rigid cystoscope was removed. A ureteric access sheath dilator was placed over the Sensor guidewire and used to dilate the ureteric orifice under fluoroscopy. The dilator was removed. The semi rigid ureteral scope was placed alongside the Sensor guidewire. We were not able to turn into the ureter through the sheath also his anatomy had a sharp turn so decision was made to proceed with a flexible ureteral scope Flexible ureteral scope encountered the stone. Using a 270 micron fiber laser the stone was dusted in broken to small pieces. Using a 0 tip basket pieces removed for analysis. The Sensor guidewire was placed at completion the procedure. The ureteric access sheath was removed. The regular cystoscope was backloaded with a double-J stent. A 6 [place] by 28 cm double-J stent was placed into the renal pelvis and bladder under a combination of fluoroscopy and direct visualization. The bladder was emptied. The patient tolerated the procedure well and was extubated in the operating room, and transferred in stable condition to the recovery area. Pathology: Stones Drains: Double-J stent left side
[2022-03-05 11:55] LABS: Stone Source KIDNEY STONE
== END 2022-02-27 20:50 | disposition home or self-care (01) ==
LOC: HO.ED 19:10 → HO.SSS 20:44
PROVIDERS: Emergency Provider Emergency Medicine; PCP Internal Medicine Cardiovascular Disease; Visit Provider Urology
PROC: (CPT 52356; principal; 2022-02-27 19:10)
DX: N13.2 Hydronephrosis with renal and ureteral calculous obstruction (principal); I10 Essential (primary) hypertension; E78.5 Hyperlipidemia, unspecified; E66.01 Morbid (severe) obesity due to excess calories; Z68.42 Body mass index [BMI] 45.0-49.9, adult; K57.30 Diverticulosis of large intestine without perforation or abscess without bleeding; Z79.899 Other long term (current) drug therapy; Z79.1 Long term (current) use of non-steroidal anti-inflammatories (NSAID); Z88.0 Allergy status to penicillin; Z20.822 Contact with and (suspected) exposure to COVID-19
CPT/HCPCS: 52356; 36415; 74176; 80048; 81001; 81003; 82365; 85025; 87635; 88300; 96361; 96374; 96375; 99285; C1758; C1769; C2617; J1170; J1885; J1956; J2405; J3010; Q9967

== ENCOUNTER → 2022-03-08 12:43 | Outpatient (BNVA) | payer OTHER, SELFPAY | PROVIDERS: PCP Internal Medicine Cardiovascular Disease; Visit Provider Urology | DX: Z46.6 Encounter for fitting and adjustment of urinary device (principal); N20.1 Calculus of ureter | CPT/HCPCS: 52310 ==

== ENCOUNTER 2023-12-02 15:17 | Inpatient (IN) | payer BC, SELFPAY ==
--- NOTE | ~2023-12-02 | FL_ITS ---
EXAMINATION: XR FLUOROSCOPY WITH IMAGES CLINICAL INFORMATION: LAP LOKESH WITH CHOLANGIOGRAM COMPARISON: MRCP December 03, 2023. Ultrasound right upper quadrant abdomen December 03, 2023 TECHNIQUE: Fluoroscopy Supervised By: Dr. Salas. Fluoroscopy Time: 29.1 seconds. Cumulative Dose: 18 mGy. Images: 4. FL/FL guidance in OR Findings/impression: Contrast opacifies the residual cystic duct and the common bile duct with no filling defects. Contrast flows into the duodenum. There is reflux of contrast into the proximal pancreatic duct
--- NOTE | ~2023-12-02 | CT_ITS ---
EXAMINATION: CT ABDOMEN AND PELVIS WITH CONTRAST CLINICAL INFORMATION: Pain. COMPARISON: 02/27/2022. TECHNIQUE: Multidetector volumetric images were obtained from the superior aspect of the liver through the pubic symphysis following administration 100 mL of Omnipaque 350 intravenous contrast. Sagittal and coronal reformatted images were obtained on the technologist's workstation. Oral contrast: No This CT examination was performed using dose optimization techniques as appropriate, variously including the following: *Automated exposure control *Adjustment of mA and/or kV according to patient size (this includes techniques or standardized protocols for targeted exams where dose is matched to indication/reason for exam; i.e. extremities or head) *Use of iterative reconstruction technique DLP: 1126 mGy-cm FINDINGS: LUNG BASES: The visualized lung bases are unremarkable. LIVER, GALLBLADDER, AND BILIARY TREE: The liver is normal in size, shape, and attenuation. No focal hepatic lesion or biliary ductal dilatation is present. The gallbladder contents are heterogeneous. PANCREAS: There is moderate peripancreatic infiltration/fluid. Pancreatic enhancement is within normal limits. SPLEEN: Unremarkable. ADRENAL GLANDS: Unremarkable. KIDNEYS AND URETERS: The kidneys are normal in size, shape, and attenuation. There is a 2 mm calculus upper pole left kidney and 1 mm calculus upper pole right kidney. BLADDER: Unremarkable. GASTROINTESTINAL TRACT: There are diverticula of the distal descending/proximal sigmoid colon without diverticulitis. ABDOMINAL WALL: No significant hernia is appreciated. LYMPH NODES: Normal. VASCULAR: Unremarkable. PELVIC VISCERA: Unremarkable. OSSEOUS STRUCTURES: Unremarkable. CT/CT abdomen pelvis w IV con IMPRESSION: 1. Moderate peripancreatic infiltration/fluid consistent with acute pancreatitis. 2. Heterogeneous gallbladder contents possibly related to sludge and/or noncalcified stones. 3. Small bilateral renal calculi. 4. Diverticulosis of the distal descending/proximal sigmoid colon without diverticulitis. Fleischner guidelines were followed.
--- NOTE | ~2023-12-02 | US_ITS ---
EXAMINATION: US ABDOMEN LIMITED CLINICAL INFORMATION: Pain. COMPARISON: None available. TECHNIQUE: Real-time imaging of the right upper quadrant abdominal viscera. FINDINGS: PANCREAS: Not evaluated LIVER: The visualized liver is within normal limits.. There is no intrahepatic biliary duct dilatation seen. GALLBLADDER: The gallbladder is normally distended. There is echogenic mostly non-shadowing material within the gallbladder. There is no gallbladder wall thickening or pericholecystic fluid. A negative gallego's sign was reported by the cardiopulmonary technologist. COMMON BILE DUCT: Normal in caliber measuring 0.5 cm in diameter. RIGHT KIDNEY: The visualized portions of the right kidney are normal in appearance. FREE FLUID: None. US/US abdomen limited IMPRESSION: There is echogenic mostly non-shadowing material within the gallbladder which may represent sludge and/or small calculi. There is no sonographic evidence of acute cholecystitis.
--- NOTE | ~2023-12-02 | MR_ITS ---
EXAMINATION: MR ABDOMEN WITHOUT CONTRAST CLINICAL INFORMATION: Pain. Elevated transaminases. Gallstones COMPARISON: Selected portions of CT 12/02/23 TECHNIQUE: MR abdomen is performed without gadolinium contrast. The technologist indicates the patient was unable to complete the examination FINDINGS: Large [id number] localizing sequences were performed. A fluid sensitive sequence through the upper abdomen was performed LUNG BASES: I suspect a small opacity in the posterior right lower lung LIVER, GALLBLADDER, AND BILIARY TREE: The right lobe of the liver measures approximately 19.1 cm. The study is insufficient to assess for focal liver lesions There is cholelithiasis. No localized fluid around the gallbladder. The images available do not demonstrate a dilated common duct. There is no choledocholithiasis demonstrated on the limited images available. PANCREAS: There is abnormal signal surrounding the pancreas including some fluid signal in the anterior pararenal space. This extends into the left paracolic gutter. No localized peripancreatic fluid collection. SPLEEN: The spleen measures approximately 11 cm which is within one standard deviation above the mean expected ADRENAL GLANDS: No suspicious mass demonstrated KIDNEYS AND URETERS: No dilation of the urinary collecting system on either side demonstrated GASTROINTESTINAL TRACT: Limited assessment. No large abnormality in the region of the ampulla ABDOMINAL WALL: No significant hernia demonstrated LYMPH NODES: No bulky adenopathy. VASCULAR: No abdominal aortic aneurysm demonstrated. There is a flow void within the main portal vein. OSSEOUS STRUCTURES: No suspicious focal lesion demonstrated MR/MR MRCP IMPRESSION: Very Limited study. Findings consistent with acute pancreatitis without an area of walled off necrosis or biliary dilation. There is cholelithiasis. No choledocholithiasis demonstrated on the images available
[2023-12-02 16:22] VITALS: BP 137/80; PULSE 77; RESP 20; TEMP 36.4; O2SAT 98; BMI 42.0
--- NOTE | 2023-12-02 16:24 | ED.GENADULT ---
HPI - General Adult General Chief complaint: Abdominal Pain Stated complaint: Abd pain Time Seen by Provider: 12/02/23 21:59 Source: patient and family (Isidra) Mode of arrival: ambulatory Limitations: no limitations History of Present Illness ED Provider: Dr. Michael Ferris HPI narrative: 53-year-old male with a history of hypertension and hyperlipidemia who presents emergency department for evaluation intermittent abdominal pain x2 weeks with constant abdominal pain x2 days. The patient states that 2 weeks prior he ate sushi. Proximally 5 hours after eating sushi he developed right right lower quadrant and left upper quadrant pain. He states that the pain has been intermittent over the last 2 weeks, usually coming on several hours after eating. States over the last 2 days however the pain is been constant. The patient states he has not been able to eat food in his lost his appetite. He states that over the last 2 days he has only had a peanut butter and jelly sandwich which did cause pain several hours after eating. States that today his pain is a constant, pressure-like pain, he points to his right lower quadrant and left upper quadrant when asked to localize the pain. The pain does radiate to his back. The pain is 7 to 8/10 at its worst. Patient had subjective fever and chills. He had nausea and vomiting. He had no diarrhea. Patient states that he has intentionally lost approximately 40 lb over the last 1.5 years by change in his diet. Related Data Home Medications ?Medication ?Instructions ?Recorded ?Confirmed amlodipine 5 mg tablet 1 tab PO DAILY 02/27/22 03/08/22 atorvastatin 20 mg tablet 1 tab PO DAILY 02/27/22 03/08/22 clonidine HCl 0.1 mg tablet 1 tab PO BID 02/27/22 03/08/22 hydrochlorothiazide 25 mg tablet 1 tab PO DAILY 02/27/22 03/08/22 losartan 100 mg tablet 1 tab PO DAILY 02/27/22 03/08/22 Previous Rx's ?Medication ?Instructions ?Recorded ibuprofen 800 mg tablet 800 mg PO Q8H PRN pain #30 tabs 02/20/22 tamsulosin 0.4 mg capsule (Flomax) 0.4 mg PO DAILY #30 caps 02/20/22 naproxen 500 mg tablet 500 mg PO BID PRN pain 7 days #14 02/27/22 tabs phenazopyridine 100 mg tablet 100 mg PO TID PRN spasm 4 days #12 02/27/22 (Pyridium) tabs tramadol 50 mg tablet 50 mg PO Q6H PRN pain (scale score 02/27/22 1-3) #8 tabs trimethoprim 100 mg tablet 100 mg PO DAILY 90 days #90 tabs 03/08/22 Allergies Allergy/AdvReac Type Severity Reaction Status Date / Time penicillin G [Penicillin G] Allergy Mild UNKNOWN Verified 12/02/23 16:24 Review of Systems Review of Systems: Yes all other systems are reviewed and are negative [facility] Past Medical History [facility] Narrative: Past medical history: Hypertension, high cholesterol (stopped atorvastatin after losing weight) social history: Patient denies tobacco use. He drinks rum (up to 7 drinks) 2 to 3 times a week. He denies drug use. He is and his is here in the emergency department. Patient states that a manage his multiple urgent care clinics in the [facility]. Medical History Hyperlipemia Hypertension Morbid (severe) obesity due to excess calories Social History Social History Alcohol intake: current Alcohol intake frequency: a few times a week Patient Tobacco Use Status: Never used Tobacco Advance Directives: No Advance Directives Information Provided: No Physical Exam ED Vital Signs: Vital Signs - 24 hr 12/02/23 16:22 12/02/23 22:00 12/03/23 00:46 Temperature 97.6 F 97.9 F 97.9 F Pulse Rate 77 72 73 Respiratory Rate 20 21 H 17 Blood Pressure 137/80 140/80 H Pulse Oximetry 98 98 98 Oxygen Delivery Method Room Air Room Air Room Air BMI result Body Mass Index 42.0 Vital signs were normal. Exam: General: Awake, alert in no distress, weight 132.7 kg, elevated BMI 42 Head: Normocephalic, atraumatic EENT: PERRL, Lids normal, sclera normal, conjunctiva normal, nose normal , ears normal, throat without erythema or exudates Neck: Supple, no adenopathy Lung: breath sounds symmetric, no wheezing, rales or rhonchi Chest: symmetric movement, nontender Heart: regular rate and rhythm, normal S1, S2 no murmurs or rubs Abdomen: Mild right upper quadrant, moderate right lower quadrant tenderness. Moderate left upper tenderness. Normoactive bowel sounds, no voluntary or involuntary guarding Back: no vertebral tenderness, no CVAT Extremities: no deformities, moves all extremities symmetrically Neuro: Awake, alert, oriented, normal speech, moves all extremities symmetrically Psych: Pleasant, cooperative Course Course Course Narrative: RME- 53-year-old male presents for evaluation abdominal pain that has on and off for the last few weeks. His pain is worse after eating. Pain is mostly to right side of the abdomen. Plan for labs, will defer potential imaging to primary provider. Patient denies any history of previous abdominal surgeries Medications Administered Discontinued Medications Generic Name Dose Route Start Last Admin Trade Name Freq PRN Reason Stop Dose Admin Hydromorphone HCl 1 mg 12/02/23 22:19 12/02/23 22:31 Hydromorphone Hcl 1 Mg/Ml Syringe IVPUSH 12/02/23 22:20 1 mg ONCE STA Administration Protocol Ceftriaxone Sodium 2 gm/ 50 mls @ 100 mls/hr 12/02/23 22:27 12/02/23 23:42 Sodium Chloride IV 12/02/23 22:56 Infused ONCE ONE Infusion Metronidazole 500 mg in 100 mls @ 100 mls/hr 12/02/23 22:27 12/02/23 22:59 Flagyl IV 12/02/23 23:26 100 mls/hr ONCE ONE Administration Lactated Ringer's 1,000 mls @ 999 mls/hr 12/02/23 22:30 12/02/23 22:59 Lr IV 12/02/23 23:30 999 mls/hr .Q1H1M ETA Administration Iohexol 100 ml 12/02/23 23:30 12/02/23 23:30 Iohexol 350 Mg/Ml 100 Ml Infus..Btl IV 12/02/23 23:31 100 ml ONCE ONE Administration Ondansetron HCl 4 mg 12/02/23 22:19 12/02/23 22:31 Ondansetron Hcl 4 Mg/2 Ml Vial IVPUSH 12/02/23 22:20 4 mg ONCE ONE Administration Potassium Chloride 40 meq 12/02/23 23:24 12/02/23 23:42 Potassium Chloride Packet 20 Meq Packet PO 12/02/23 23:25 40 meq ONCE ONE Administration Medical Decision Making Medical Decision Making [facility] Narrative: 53-year-old male with a history of hypertension and hyperlipidemia who presents emergency department for evaluation intermittent abdominal pain x2 weeks with constant abdominal pain x2 days. Take constant, pressure like pain located in the right lower quadrant and left upper quadrant areas. Pain is currently 7 to 8/10. Patient has not been able to eat food for the past 2 days secondary to his pain. Pain is associated with nausea but no vomiting. Vital signs were normal. Exam revealed right upper quadrant, right lower quadrant and left upper quadrant tenderness. There was no rebound Differential diagnosis: ?Includes but is not limited to cholecystitis, pancreatitis, appendicitis, gastritis, esophagitis, electrolyte abnormalities, anemia Following evaluation was ordered: CBC, CMP, lipase, direct bilirubin, lactic acid, lipid panel, blood cultures x2, urinalysis, CT scan of the abdomen pelvis with IV contrast Patient was initially treated with the following: Ceftriaxone 2 g IV, metronidazole 500 mg IV, Dilaudid 1 mg IV, lactated Ringer's x1 L Course: 23:16 My independent interpretation patient's laboratory evaluation as follows: WBC elevated 12,600 with a left shift 79% neutrophils. Potassium low 3.0. AST and ALT elevated to 0 4 and 375. Alk-phos elevated 299. Total bilirubin elevated at 7.4 with elevated direct bilirubin of 5.1. Lipase greater than 3000. Lactic acid was normal. Lipid panel pending. Evaluation and presentation is consistent with gallstone pancreatitis . The patient is pen allergic therefore he will be treated with ceftriaxone 2 g IV and metronidazole [address] scan is pending. I did discuss admission over tiger text with the covering hospitalist Dr. Odonnell. 01:[address] scan of the abdomen pelvis did reveal moderate peripancreatic infiltration consistent with acute pancreatitis. The patient has a heterogeneous gallbladder containing sludge versus noncalcified stones. Radiologist did not comment on the sizes the common bile duct. The patient does have 2 small incidental renal stones and diverticulosis. I will obtain a right upper quadrant ultrasound to evaluate the patient's common bile duct into evaluate for stones Patient's pain is returning therefore he was ordered a 2nd dose of Dilaudid 1 mg IV. Admission/Observation Consideration of admission/observation: Escalation of care including admission/observation considered Lab Data [facility] Lab Attestation statement: I reviewed the patient's lab results. 12/02/23 17:00 12/02/23 17:00 Labs: Lab Results 12/02/23 12/02/23 Range/Units 17:00 22:39 WBC 12.6 H (4.8-10.8) X10*3/uL RBC 5.87 H (4.60-5.80) X10*6/uL Hgb 17.4 (14.0-18.0) g/dl Hct 49.0 (42.0-52.0) % MCV 83.5 (80.0-98.0) fL MCH 29.6 (27.0-33.0) pg MCHC 35.5 (31.0-36.0) g/dl RDW 11.9 (11.0-16.0) % Plt Count 327 (160-400) X10*3/uL MPV 9.6 (9.4-12.4) fL Immature Gran % (Auto) 0.5 H (0.0-0.4) % Neut % (Auto) 79.7 H (45-73) % Lymph % (Auto) 9.0 L (20-40) % Crook % (Auto) 9.4 (2-11) % Eos % (Auto) 1.2 (0-4) % Baso % (Auto) 0.2 (0-2) % Lymph # (Auto) 1.1 L (1.2-4.9) X10*3/uL Crook # (Auto) 1.2 (0.1-1.2) X10*3/uL Eos # (Auto) 0.2 (0.0-0.4) X10*3/uL Baso # (Auto) 0.0 (0.0-0.2) X10*3/uL Abs Immat Gran (auto) 0.06 H (0.00-0.03) X10*3/uL Absolute Neuts (auto) 10.0 H (2.0-8.3) x10*3/uL Absolute Nucleated RBC 0.000 (0.0-0.012) X10*3/uL Nucleated RBC % (auto) 0.0 (0.0-0.2) /100WBC Sodium 139 (135-145) mmol/L Potassium 3.0 L (3.3-5.1) mmol/L Chloride 98 (96-108) mmol/L Carbon Dioxide 26 (22-29) mmol/L Anion Gap 18 (12-20) BUN 15 (9-16) mg/dL Creatinine 1.14 (0.5-1.4) mg/dL Estim Creat Clear Calc 105.0 Estimated GFR > 60 Random Glucose 186 H (60-115) mg/dL Lactic Acid 1.3 (0.5-2.0) mmol/L Calcium 10.6 H (8.4-10.2) mg/dL Total Bilirubin 7.4 H (0.0-1.0) mg/dL Direct Bilirubin 5.1 H (0.0-0.5) mg/dL AST 204 H (5-37) U/L ALT 375 H (0-40) U/L Alkaline Phosphatase 299 H (39-117) U/L Total Protein 8.5 H (6.5-8.0) g/dL Albumin 4.4 (3.5-5.0) g/dL Triglycerides 141 (<150) mg/dL Cholesterol 243 H (<200) mg/dL LDL Cholesterol, Calc 170 H (<100) mg/dL HDL Cholesterol 45 (>40) mg/dL Lipase > 3000 H (8-78) U/L Independent Interpretation I performed an independent interpretation of an: CT Scan Interpretation: CT abdomen pelvis w IV con IMPRESSION: 1. Moderate peripancreatic infiltration/fluid consistent with acute pancreatitis. 2. Heterogeneous gallbladder contents possibly related to sludge and/or noncalcified stones. 3. Small bilateral renal calculi. 4. Diverticulosis of the distal descending/proximal sigmoid colon without diverticulitis. Fleischner guidelines were followed. Dictated By: Omer De La Rosa Independent Historian Clinical information obtained from an independent historian. History obtained from or confirmed by: Spouse Chronic Conditions Patient?s care impacted by: Hypertension Critical Care Time Critical Care Time Critical Care Time: Yes Total Critical Care Time: 35 Attestation: Critical Care: The patient was critically ill with a high probability of imminent or life threatening deterioration. I spent greater than 30 minutes of discontinuous time evaluating the patient,delivering critical care at the bedside, discussing and evaluating pertinent data with consultants. Critical care time does not include time spent performing separately billable procedures or teaching. Total time spent performing critical care was 35 minutes. Discharge Plan Discharge Clinical Impression: Acute gallstone pancreatitis Patient Disposition: Admitted As Inpatient Print Language: Citizen Of [place]
[2023-12-02 17:05] LABS: MANUAL DIFF FLAG NO
[2023-12-02 17:08] LABS: Basophils Percent Auto 0.2 % (0-2); Eosinophils Absolute Auto 0.2 X10*3/uL (0.0-0.4); Eosinophils Percent Auto 1.2 % (0-4); Hemoglobin 17.4 g/dl (14.0-18.0); Imm Gran Abs Auto 0.06 X10*3/uL (0.00-0.03); Imm Gran Pct Auto 0.5 % (0.0-0.4); Lymphocytes Absolute Auto 1.1 X10*3/uL (1.2-4.9); Mean Corpuscular HGB Conc 35.5 g/dl (31.0-36.0); Mean Corpuscular Hemoglobin 29.6 pg (27.0-33.0); Mean Corpuscular Volume 83.5 fL (80.0-98.0); Mean Platelet Volume 9.6 fL (9.4-12.4); Monocytes Absolute Auto 1.2 X10*3/uL (0.1-1.2); Monocytes Percent Auto 9.4 % (2-11); Neutrophils Percent Auto 79.7 % (45-73); Platelet Count 327 X10*3/uL (160-400); Red Blood Count 5.87 X10*6/uL (4.60-5.80); Red Cell Distribution Width 11.9 % (11.0-16.0); White Blood Count 12.6 X10*3/uL (4.8-10.8)
[2023-12-02 17:44] LABS: Alanine Aminotransferase 375 U/L (0-40); Albumin Level 4.4 g/dL (3.5-5.0); Alkaline Phosphatase 299 U/L (39-117); Anion Gap 18 (12-20); Aspartate Amino Transferase 204 U/L (5-37); Bilirubin Total 7.4 mg/dL (0.0-1.0); Blood Urea Nitrogen 15 mg/dL (9-16); Calcium 10.6 mg/dL (8.4-10.2); Carbon Dioxide 26 mmol/L (22-29); Chloride 98 mmol/L (96-108); Estimated Glomerular Filt Rate > 60; Glucose Random 186 mg/dL (60-115); Sodium 139 mmol/L (135-145); Total Protein 8.5 g/dL (6.5-8.0)
[2023-12-02 17:57] LABS: Lipase > 3000 U/L (8-78)
[2023-12-02 22:00] VITALS: PULSE 72; RESP 21; TEMP 36.6; O2SAT 98
[2023-12-02] MEDS: ondansetron HCL 4 MG/2 ML VIAL IVPUSH (22:31)
[2023-12-02] MEDS: HYDROmorphone HCl 1 MG/ML SYRINGE IVPUSH (22:31)
[2023-12-02 22:47] LABS: Bilirubin Direct 5.1 mg/dL (0.0-0.5)
[2023-12-02 22:56] LABS: Lactic Acid 1.3 mmol/L (0.5-2.0)
[2023-12-02] MEDS: cefTRIAXone sodium 2 GM in 0.9 % Sodium Chloride 50 ML IV (22:59)
[2023-12-02] MEDS: Lactated Ringers 1,000 ML 999 ML IV (22:59)
[2023-12-02] MEDS: metroNIDAZOLE/NS 500 MG/100 ML PIGGYBACK 100 MG IV (22:59)
[2023-12-02 23:05] LABS: Cholesterol 243 mg/dL (<200); HDL Cholesterol 45 mg/dL (>40); LDL Cholesterol Calculated 170 mg/dL (<100); Triglycerides 141 mg/dL (<150)
--- NOTE | 2023-12-02 23:19 | ECG_ITS ---
Test Reason : ABD PAIN Blood Pressure : / mmHG Vent. Rate : 069 BPM Atrial Rate : 069 BPM P-R Int : 190 ms QRS Dur : 096 ms QT Int : 396 ms P-R-T Axes : 046 -08 049 degrees QTc Int : 424 ms Normal sinus rhythm with sinus arrhythmia Septal infarct , age undetermined Abnormal ECG No previous ECGs available Referred By: Michael Ferris Electronically Signed By:Fuentes Minor
[2023-12-02] MEDS: iohexoL 350 MG/ML 100 ML INFUS..BTL IV (23:30)
[2023-12-02] MEDS: Potassium Chloride Packet 20 MEQ PACKET 40 MEQ PO (23:42)
[2023-12-03] VITALS (8 sets, daily range): BP systolic 135–163; BP diastolic 68–83; PULSE 73–90; RESP 14–18; TEMP 36.1–36.9; O2SAT 94–98
--- NOTE | 2023-12-03 01:48 | PM.IMHP ---
History of Present Illness Date of Service: 12/03/23 Chief Complaint: Abdominal Pain This is a 53-year-old male with pertinent history of hypertension, mixed hyperlipidemia, gastroesophageal reflux disease, BPH who presents to the emergency department for evaluation of abdominal pain. Patient states he has been having intermittent right-sided abdominal discomfort that started 2 weeks prior to presentation. This is worse with p.o. intake. Also has been having intermittent nausea and vomiting. Over the last 2 days, the abdominal pain has been constant, epigastric region and radiates to the back. Associated with multiple episodes of nausea and nonbloody emesis. Unable to tolerate p.o. intake. No fever, chills, chest discomfort, palpitations, shortness of breath, changes in urinary or bowel habits. In the emergency department, serum lipase, transaminases and bilirubin found to be elevated. Imaging with acute pancreatitis Review of Systems Constitutional: Constitutional: Reports poor appetite Cardiovascular: Cardiovascular: Reports no additional cardiovascular complaints Respiratory: Respiratory: Reports no additional respiratory complaints Gastrointestinal: Gastrointestinal: Reports abdominal pain, Reports nausea and Reports vomiting Genitourinary: Genitourinary: Reports no additional male genitourinary complaints Neurologic: Reports system reviewed and no additional complaints, except as documented [facility] Medical History Hyperlipemia Morbid (severe) obesity due to excess calories Hypertension Pertinent family history: No family history of early CAD Social History Alcohol intake: current Alcohol intake frequency: a few times a week Patient Tobacco Use Status: Never used Tobacco Advance Directives: No Advance Directives Information Provided: No Meds Allergies Allergy/AdvReac Type Severity Reaction Status Date / Time penicillin G [Penicillin G] Allergy Mild UNKNOWN Verified 12/02/23 16:24 Home Medications ?Medication ?Instructions ?Recorded ?Confirmed ?Last Taken ?Type amlodipine 5 mg tablet 1 tab PO DAILY 02/27/22 03/08/22 02/27/22 History atorvastatin 20 mg tablet 1 tab PO DAILY 02/27/22 03/08/22 02/27/22 History clonidine HCl 0.1 mg tablet 1 tab PO BID 02/27/22 03/08/22 02/27/22 History hydrochlorothiazide 25 mg tablet 1 tab PO DAILY 0803/08/22 02/27/22 History losartan 100 mg tablet 1 tab PO DAILY 02/27/22 03/08/22 Unknown History Physical Exam Vital Signs and Narrative: Vital Signs: Last Vital Signs Temp 97.9 F 12/03/23 00:46 Pulse 73 12/03/23 00:46 Resp 17 12/03/23 00:46 BP 140/80 H 12/03/23 00:46 Pulse Ox 98 12/03/23 00:46 O2 Del Method Room Air 12/03/23 00:46 BMI result Body Mass Index 42.0 Middle-aged male lying in bed in no distress Neck supple, no JVD Regular rate and rhythm, S1-S2 heard Regular breath sounds bilaterally, no wheezing or crackles appreciated Abdomen with epigastric tenderness, no guarding, no rigidity Patient is awake, alert and oriented to self, place, time and person ; no focal motor deficit Psych: Normal mood No pedal edema Results Labs 12/02/23 17:00 12/02/23 17:00 Labs: Laboratory Results - last 24 hr 12/02/23 12/02/23 17:00 22:39 MCV 83.5 MCH 29.6 MCHC 35.5 RDW 11.9 Plt Count 327 MPV 9.6 Immature Gran % (Auto) 0.5 H Neut % (Auto) 79.7 H Lymph % (Auto) 9.0 L Mcdonald % (Auto) 9.4 Eos % (Auto) 1.2 Baso % (Auto) 0.2 Lymph # (Auto) 1.1 L Mcdonald # (Auto) 1.2 Eos # (Auto) 0.2 Baso # (Auto) 0.0 Abs Immat Gran (auto) 0.06 H Absolute Neuts (auto) 10.0 H Absolute Nucleated RBC 0.000 Nucleated RBC % (auto) 0.0 Anion Gap 18 Estim Creat Clear Calc 105.0 Estimated GFR > 60 Random Glucose 186 H Lactic Acid 1.3 Calcium 10.6 H Total Bilirubin 7.4 H Direct Bilirubin 5.1 H AST 204 H ALT 375 H Alkaline Phosphatase 299 H Total Protein 8.5 H Albumin 4.4 Triglycerides 141 Cholesterol 243 H LDL Cholesterol, Calc 170 H HDL Cholesterol 45 Lipase > 3000 H Imaging Radiologist's Impressions: Impressions Abdomen/Pelvis CT 12/02/23 23:30 IMPRESSION: 1. Moderate peripancreatic infiltration/fluid consistent with acute pancreatitis. 2. Heterogeneous gallbladder contents possibly related to sludge and/or noncalcified stones. 3. Small bilateral renal calculi. 4. Diverticulosis of the distal descending/proximal sigmoid colon without diverticulitis. Fleischner guidelines were followed. Assessment and Plan (1) Acute gallstone pancreatitis: Status: Acute Plan This is a 53-year-old male with pertinent history of hypertension, mixed hyperlipidemia, gastroesophageal reflux disease, BPH who presents to the emergency department for evaluation of abdominal pain. #. Acute gallstone pancreatitis: Resuscitating with IV crystalloids. NPO for bowel rest. IV opioids p.r.n. for symptomatic relief. Hold losartan (class 1B) and hydrochlorothiazide, atorvastatin (class III) for pancreatitis. Initiating empiric IV antibiotics. CT with gallstones but ultrasound without biliary ductal dilatation, ?stone passed. Obtaining MRCP. Consulting General surgery #. Elevated transaminases and obstructive jaundice at the setting of above #. Hypertension: On amlodipine #. BPH: Flomax #. Mixed hyperlipidemia: Hold statin as above #. Obesity: Counseled regarding diet and exercise #. Hypokalemia: Repleted Med rec pending DVT prophylaxis: Mechanical Full code Admit as inpatient and will require two night minimum hospital stay for evaluation and treatment of gallstone pancreatitis, IV crystalloid resuscitation, IV opioids p.r.n. (as above), which is not possible in a lesser acute setting. Specialist consult pending Quality Stroke Does the patient have a stroke diagnosis?: No VTE Prior VTE?: No VTE Risk Level:: Medical - moderate - high VTE Device Contraindication: Treatment Not Indicated VTE Drug Contraindication: N/A - Med Ordered
[2023-12-03] MEDS: HYDROmorphone HCl 1 MG/ML SYRINGE IVPUSH ×5 (02:02→19:49)
[2023-12-03] MEDS: Lactated Ringers 1,000 ML 150 ML IVCONT ×3 (02:10→16:44)
[2023-12-03 05:47] LABS: MANUAL DIFF FLAG NO
[2023-12-03 05:49] LABS: Basophils Percent Auto 0.3 % (0-2); Eosinophils Percent Auto 0.2 % (0-4); Hematocrit 44.9 % (42.0-52.0); Hemoglobin 16.3 g/dl (14.0-18.0); Imm Gran Abs Auto 0.05 X10*3/uL (0.00-0.03); Imm Gran Pct Auto 0.4 % (0.0-0.4); Mean Corpuscular HGB Conc 36.3 g/dl (31.0-36.0); Mean Corpuscular Hemoglobin 30.5 pg (27.0-33.0); Mean Corpuscular Volume 83.9 fL (80.0-98.0); Mean Platelet Volume 10.3 fL (9.4-12.4); Monocytes Absolute Auto 1.2 X10*3/uL (0.1-1.2); Monocytes Percent Auto 9.3 % (2-11); Neutrophils Absolute Auto 10.1 x10*3/uL (2.0-8.3); Neutrophils Percent Auto 81.8 % (45-73); Platelet Count 291 X10*3/uL (160-400); Red Blood Count 5.35 X10*6/uL (4.60-5.80); Red Cell Distribution Width 12.1 % (11.0-16.0); White Blood Count 12.3 X10*3/uL (4.8-10.8)
[2023-12-03] MEDS: metroNIDAZOLE/NS 500 MG/100 ML PIGGYBACK 100 MG IV ×3 (05:59→21:35)
[2023-12-03 06:05] LABS: Alanine Aminotransferase 317 U/L (0-40); Albumin Level 3.9 g/dL (3.5-5.0); Alkaline Phosphatase 306 U/L (39-117); Anion Gap 16 (12-20); Aspartate Amino Transferase 154 U/L (5-37); Bilirubin Total 7.1 mg/dL (0.0-1.0); Blood Urea Nitrogen 16 mg/dL (9-16); Calcium 9.6 mg/dL (8.4-10.2); Carbon Dioxide 24 mmol/L (22-29); Chloride 101 mmol/L (96-108); Estimated Glomerular Filt Rate > 60; Glucose Random 133 mg/dL (60-115); Potassium 3.1 mmol/L (3.3-5.1); Sodium 138 mmol/L (135-145); Total Protein 7.4 g/dL (6.5-8.0)
[2023-12-03 06:24] LABS: Appearance Urine Clear; Color Urine Dark Yellow; Glucose Urine UA Negative (Negative); Leukocyte Esterase Urine Trace (Negative); Nitrite Urine Negative (Negative); Specific Gravity - Urine >= 1.030 (1.005-1.025); UMIC TRIGGER UACC YES; Urine Blood Negative (Negative); Urine Ketones Negative (Negative); Urine Protein 30 (1+) mg/dL (Neg-Trace)
[2023-12-03 07:13] LABS: Bacteria Urine None Seen (None Seen); Hyaline Casts Urine 0-2 /LPF (0-2); RBC Urine 0-2 /HPF (0-2); Squamous Epithelial Cell Urine 0-2 /HPF (0-2); WBC Urine 0-5 /HPF (0-5)
--- NOTE | 2023-12-03 07:25 | PC.NURSE ---
Resumed care of patient, he is currently resting comfortably post PRN administration. IVF running per order. Pt remains NPO, awaiting bed placement at this time
[2023-12-03] MEDS: Potassium Chloride/H20 10 MEQ/100 ML PIGGYBACK 100 MEQ IV ×2 (08:37→10:28)
[2023-12-03 09:20] LABS: Magnesium 1.9 mg/dL (1.6-2.6)
--- NOTE | 2023-12-03 10:05 | PHA.MEDREC ---
Pharmacy Consult ? Medication Reconciliation Pharmacy has completed the medication reconciliation. Patient had list on their phone
--- NOTE | 2023-12-03 11:58 | PM.EVENT ---
Event Note Date of Service: 12/03/23 Event Note: Day hospitalist update S: severe RUQ/epigastric pain did not tolerate MRI drinks EtOH perhaps 2-3x a month O: Temp Pulse Resp BP Pulse Ox O2 Del Method 98.5 F 76 15 135/78 94 Room Air 12/03/23 11:16 12/03/23 11:16 12/03/23 11:16 12/03/23 11:16 12/03/23 11:16 12/03/23 11:16 Gen: in no acute distress HEENT: sclera anicteric, moist mucus membranes Neck: supple Lungs: clear to auscultation bilaterally Heart: regular rate and rhythm, no murmurs Abd: soft, epigastric tenderness, non-distended, obese Ext: no edema Skin: warm/well-perfused Neuro: alert and oriented x3, no focal findings Psych: appropriate affect Laboratory Results - last 24 hr 12/02/23 12/02/23 12/03/23 17:00 22:39 04:56 WBC 12.6 H 12.3 H RBC 5.87 H 5.35 Hgb 17.4 16.3 Hct 49.0 44.9 MCV 83.5 83.9 MCH 29.6 30.5 MCHC 35.5 36.3 H RDW 11.9 12.1 Plt Count 327 291 MPV 9.6 10.3 Immature Gran % (Auto) 0.5 H 0.4 Neut % (Auto) 79.7 H 81.8 H Lymph % (Auto) 9.0 L 8.0 L [place] % (Auto) 9.4 9.3 Eos % (Auto) 1.2 0.2 Baso % (Auto) 0.2 0.3 Lymph # (Auto) 1.1 L 1.0 L [place] # (Auto) 1.2 1.2 Eos # (Auto) 0.2 0.0 Baso # (Auto) 0.0 0.0 Abs Immat Gran (auto) 0.06 H 0.05 H Absolute Neuts (auto) 10.0 H 10.1 H Absolute Nucleated RBC 0.000 0.000 Nucleated RBC % (auto) 0.0 0.0 Sodium 139 138 Potassium 3.0 L 3.1 L Chloride 98 101 Carbon Dioxide 26 24 Anion Gap 18 16 BUN 15 16 Creatinine 1.14 0.95 Estim Creat Clear Calc 105.0 126.0 Estimated GFR > 60 > 60 Random Glucose 186 H 133 H Lactic Acid 1.3 Calcium 10.6 H 9.6 D Magnesium 1.9 Total Bilirubin 7.4 H 7.1 H Direct Bilirubin 5.1 H AST 204 H 154 H ALT 375 H 317 H Alkaline Phosphatase 299 H 306 H Total Protein 8.5 H 7.4 Albumin 4.4 3.9 Triglycerides 141 Cholesterol 243 H LDL Cholesterol, Calc 170 H HDL Cholesterol 45 Lipase > 3000 H Urine Color Urine Appearance Urine pH Ur Specific [place] Urine Protein Urine Glucose (UA) Urine Ketones Urine Blood Urine Nitrite Ur Leukocyte Esterase Urine RBC Urine WBC Ur Squamous Epith Cells Urine Bacteria Hyaline Casts 12/03/23 06:07 WBC RBC Hgb Hct MCV MCH MCHC RDW Plt Count MPV Immature Gran % (Auto) Neut % (Auto) Lymph % (Auto) [place] % (Auto) Eos % (Auto) Baso % (Auto) Lymph # (Auto) [place] # (Auto) Eos # (Auto) Baso # (Auto) Abs Immat Gran (auto) Absolute Neuts (auto) Absolute Nucleated RBC Nucleated RBC % (auto) Sodium Potassium Chloride Carbon Dioxide Anion Gap BUN Creatinine Estim Creat Clear Calc Estimated GFR Random Glucose Lactic Acid Calcium Magnesium Total Bilirubin Direct Bilirubin AST ALT Alkaline Phosphatase Total Protein Albumin Triglycerides Cholesterol LDL Cholesterol, Calc HDL Cholesterol Lipase Urine Color Dark Yellow Urine Appearance Clear Urine pH 6.0 Ur Specific [place] >= 1.030 H Urine Protein 30 (1+) H Urine Glucose (UA) Negative Urine Ketones Negative Urine Blood Negative Urine Nitrite Negative Ur Leukocyte Esterase Trace H Urine RBC 0-2 Urine WBC 0-5 Ur Squamous Epith Cells 0-2 Urine Bacteria None Seen Hyaline Casts 0-2 A/P: d1 53yo M with HTN, HLD, GERD, BPH presenting with abd pain and found to have pancreatitis + gallstones/sludge acute gallstone pancreatitis - perhaps passed CBD stone, trend LFTs, consult GI - needs lap isa, consult Gen Surg - continue ceftriaxone/metronidazole 12/02- - IV fluids, clear liquid diet, prn hydromorphone hypoK - replete IV, recheck level in AM HTN - continue amlodipine + losartan, hold HCTZ HLD - continue atorvastatin morbid obesity - diet/exercise counseling VTE ppx - LMWH dispo - eventual home In my clinical judgment, the patient requires continued hospitalization for the following reasons: IV ABX, surgical management Time Spent With Patient Time: Total time managing care of this patient today ____ minutes.
[2023-12-03] MEDS: 0.9 % Sodium Chloride Flush 3 ML SYRINGE IVFLUSH (16:45)
[2023-12-03] MEDS: cefTRIAXone sodium 1 GM in 0.9 % Sodium Chloride 50 ML IV (21:02)
[2023-12-04] MEDS: HYDROmorphone HCl 1 MG/ML SYRINGE IVPUSH ×4 (01:27→13:54)
[2023-12-04 04:00] VITALS: BP 162/80; PULSE 86; RESP 18; TEMP 36.3; O2SAT 94
[2023-12-04] MEDS: metroNIDAZOLE/NS 500 MG/100 ML PIGGYBACK 100 MG IV ×3 (05:28→22:00)
--- NOTE | 2023-12-04 05:34 | P.CNGI_ITS ---
History of Present Illness Data of Consult Service Date: 12/04/23 Requesting physician: Josette Luu Primary Care Provider: Unknown Physician HPI Reason for consult: gallstone pancreatitis 53-year-old male with history of hypertension, mixed hyperlipidemia, gastroesophageal reflux disease, BPH and obesity who I am seeing for pancreatitis He initially presented to the ED with severe 10/10 epigastric and RUQ pain radiating into the back and associated wuth nausea and non bloody emesis. HE felt the pain start about 2 weeks ago, but last few days it was getting unbearable. Never had this pain before. No diarrhea, constipation and denies fevers, or chills. since admission feels improved but still has poor appetite. Imaging: acute pancreatitis with slightly dilated CBD on Ct, MRCP-limited but no filling defect seen on available images LABS: marked elveated bili 7 and elevated ASt, ALT, alk phos now bili came down to 2. Review of Systems 2 Review of Systems: Constitutional : No Weight loss, No Fever, No Chills ENT/Mouth : No sore throat, No Rhinorrhea Eyes: No Swelling, No Redness Cardiovascular : No Chest Pain, No SOB, No Edema Respiratory : No Cough, No Sputum, No Wheezing Gastrointestinal : see HPI Genitourinary : NO Dysuria, No Urinary Frequency, No Hematuria, No Urgency Musculoskeletal : no joint pain, No Myalgias, No Joint Swelling Skin : No Skin Lesions, No rash Neuro : No Weakness, No Numbness, No Dizziness, No Headache Psych : No Anxiety/Panic, No Depression Heme/Lymph: No Bruising, No Lymphadenopathy Endocrine : No Polyuria, No Polydipsia All other systems reviewed and are negative. [facility], [facility] Past Medical History Medical History Hyperlipemia Morbid (severe) obesity due to excess calories Hypertension Family History Pertinent family history: no fh of pancreas dz--mother had GB removed Social History Social History Household Members: Family Housing: House Do you presently have visiting nurse or other home services: No Alcohol intake: current Alcohol intake frequency: a few times a week Patient Tobacco Use Status: Never used Tobacco Meds Allergies Allergy/AdvReac Type Severity Reaction Status Date / Time penicillin G [Penicillin G] Allergy Mild UNKNOWN Verified 12/02/23 16:24 Active Medications: Current Medications Acetaminophen (Acetaminophen 325 Mg Tablet) 650 mg PO Q6H PRN PRN Reason: Pain, Mild (Pain Scale 1-3) Amlodipine Besylate (Amlodipine Besylate 5 Mg Tablet) 5 mg PO DAILY [facility]; Protocol Hydromorphone HCl (Hydromorphone Hcl 1 Mg/Ml Syringe) 1 mg IVPUSH Q4H PRN; Protocol PRN Reason: Pain, Severe (Pain Scale 7-10) Last Admin: 12/04/23 05:27 Dose: 1 mg Lactated Ringer's (Lr) 1,000 mls @ 150 mls/hr IVCONT .Q6H40M [facility] Last Admin: 12/04/23 04:26 Dose: Not Given Ceftriaxone Sodium 1 gm/ (Sodium Chloride) 50 mls @ 100 mls/hr IV Q24H [facility] Last Infusion: 12/03/23 21:36 Dose: Infused Metronidazole (Flagyl) 500 mg in 100 mls @ 100 mls/hr IV Q8H [facility] Last Admin: 12/04/23 05:28 Dose: 100 mls/hr Losartan Potassium (Losartan Potassium 50 Mg Tablet) 100 mg PO DAILY [facility]; Protocol Melatonin (Melatonin 3 Mg Tablet) 6 mg PO BEDTIME PRN PRN Reason: Insomnia Ondansetron HCl (Ondansetron Hcl 4 Mg/2 Ml Vial) 4 mg IVPUSH Q8H PRN PRN Reason: Nausea and Vomiting Sodium Chloride (0.9 % Sodium Chloride Flush 3 Ml Syringe) 3 ml IVFLUSH QSHIFT [facility] Last Admin: 12/03/23 19:50 Dose: 3 ml Home Medications ?Medication ?Instructions ?Recorded ?Confirmed ?Last Taken ?Type amlodipine 5 mg tablet 5 mg PO DAILY 12/03/23 12/03/23 Unknown History hydrochlorothiazide 25 mg tablet 25 mg PO DAILY 12/03/23 12/03/23 Unknown History losartan 100 mg tablet 100 mg PO DAILY 12/03/23 12/03/23 Unknown History Physical Exam 2 Vital Signs: Vital Signs: Last Vital Signs Temp 97.4 F 12/04/23 04:00 Pulse 86 12/04/23 04:00 Resp 18 12/04/23 04:00 BP 162/80 H 12/04/23 04:00 Pulse Ox 94 12/04/23 04:00 O2 Del Method Room Air 12/04/23 04:00 BMI result Body Mass Index 42.0 EXAM: GENERAL: The patient is well developed and nontoxic, obese VITAL SIGNS:see workflow HEENT: Nonicteric sclerae, PERRLA, EOMI. Oropharynx clear. Moist mucous membranes. Conjunctivae appear well perfused. No thyroid mass. CHEST: Chest wall is nontender. HEART: Regular rate and rhythm without murmurs. LUNGS: Clear to auscultation bilaterally. ABDOMEN: Soft, positive bowel sounds, mildly tender RUQ, no organomegaly.no flank tenderness SKIN: No rash, no excessive bruising, petechiae, or purpura. NEUROLOGIC: Cranial nerves II-XII intact without motor/sensory deficit. Psych: normal affect Results Labs 12/04/23 05:36 12/04/23 05:36 Labs: Short CBC 12/03/23 Range/Units 04:56 WBC 12.3 H (4.8-10.8) X10*3/uL Hgb 16.3 (14.0-18.0) g/dl Hct 44.9 (42.0-52.0) % Plt Count 291 (160-400) X10*3/uL BMP 12/03/23 04:56 Sodium 138 Potassium 3.1 L Chloride 101 Carbon Dioxide 24 BUN 16 Creatinine 0.95 Calcium 9.6 D Liver Function 12/03/23 Range/Units 04:56 Total Bilirubin 7.1 H (0.0-1.0) mg/dL AST 154 H (5-37) U/L ALT 317 H (0-40) U/L Alkaline Phosphatase 306 H (39-117) U/L Albumin 3.9 (3.5-5.0) g/dL Urine 12/03/23 Range/Units 06:07 Urine Color Dark Yellow Urine Appearance Clear Urine pH 6.0 (5.0-9.0) Ur Specific [place] >= 1.030 H (1.005-1.025) Urine Protein 30 (1+) H (Neg-Trace) mg/dL Urine Glucose (UA) Negative (Negative) mg/dL Microbiology Microbiology Results: Microbiology 12/02/23 22:56 Blood - Venous Blood Culture - Preliminary No growth after 24 hours. 12/02/23 22:39 Blood - Venous Blood Culture - Preliminary No growth after [address] scan - abdomen: Attestation: I personally reviewed and interpreted this imaging study as follows: (slightly dilated cbd and pd, no filling defect seen, pancreas swelling and edema, fluid ) My impression: acute pancreatitis with caitlyn pancreatic fluid with slightly dilated CBD on Ct, MRCP-limited but no filling defect seen on available images Assessment and Plan (1) Acute gallstone pancreatitis: Status: Acute Plan 1/ Acute gallstone pancreatitis, no stone seen on imaging, MR or CT, LFT coming down, likely passed the stone PLAN: /1 hold on ERCP unless LFT worsen 2/ surgery consult for cholecystectomy 3/ cont with pain and fluids, LR Procedures Date of Service Date of Service: 12/04/23
--- NOTE | 2023-12-04 05:41 | PC.NURSE ---
Previous daytime nurse on 12/02 reported that pt had been having elevated BP's and that ALBA Avalos, had told RN to hold fluids for elevated BP. BP continues to be elevated overnight and fluids have been held. Will continue to monitor.
[2023-12-04 06:17] LABS: Hematocrit 42.2 % (42.0-52.0); Hemoglobin 14.9 g/dl (14.0-18.0); Mean Corpuscular HGB Conc 35.3 g/dl (31.0-36.0); Mean Corpuscular Hemoglobin 30.2 pg (27.0-33.0); Mean Corpuscular Volume 85.4 fL (80.0-98.0); Mean Platelet Volume 10.4 fL (9.4-12.4); Platelet Count 256 X10*3/uL (160-400); Red Blood Count 4.94 X10*6/uL (4.60-5.80); Red Cell Distribution Width 12.4 % (11.0-16.0)
[2023-12-04 06:27] LABS: INTERNATIONAL NORM RATIO 1.2 (0.9-1.1); Prothrombin Time 15.1 SEC (11.1-13.3)
[2023-12-04 06:35] LABS: Alanine Aminotransferase 192 U/L (0-40); Albumin Level 3.6 g/dL (3.5-5.0); Alkaline Phosphatase 255 U/L (39-117); Anion Gap 14 (12-20); Aspartate Amino Transferase 57 U/L (5-37); Bilirubin Total 2.1 mg/dL (0.0-1.0); Blood Urea Nitrogen 17 mg/dL (9-16); Calcium 9.3 mg/dL (8.4-10.2); Carbon Dioxide 28 mmol/L (22-29); Chloride 100 mmol/L (96-108); Creatinine Clr Calc Pharmacy 142.5; Estimated Glomerular Filt Rate > 60; Glucose Random 92 mg/dL (60-115); Potassium 3.1 mmol/L (3.3-5.1); Sodium 139 mmol/L (135-145)
--- NOTE | 2023-12-04 07:12 | PM.CNGS ---
History of Present Illness Consult details Consult date: 12/04/23 Narrative: [age] year-old male who presents with a over 2 and half week history of progressively worsening epigastric/right upper quadrant abdominal pain. Because of persistence of symptoms, he presented emergency department with workup including evaluation, labs, ultrasound and MRCP are consistent with gallstone pancreatitis. Patient has a few comorbidities. Chart was reviewed and patient evaluated Patient has a modest leukocytosis as well as elevated bilirubin which is improving. Repeat lipase is still pending. [facility] Past Medical History Medical History Hyperlipemia Morbid (severe) obesity due to excess calories Hypertension Social History Social History Household Members: Family Housing: House Do you presently have visiting nurse or other home services: No Alcohol intake: current Alcohol intake frequency: a few times a week Patient Tobacco Use Status: Never used Tobacco Meds Allergies Allergy/AdvReac Type Severity Reaction Status Date / Time penicillin G [Penicillin G] Allergy Mild UNKNOWN Verified 12/02/23 16:24 Active Medications: Current Medications Acetaminophen (Acetaminophen 325 Mg Tablet) 650 mg PO Q6H PRN PRN Reason: Pain, Mild (Pain Scale 1-3) Amlodipine Besylate (Amlodipine Besylate 5 Mg Tablet) 5 mg PO DAILY [facility]; Protocol Hydromorphone HCl (Hydromorphone Hcl 1 Mg/Ml Syringe) 1 mg IVPUSH Q4H PRN; Protocol PRN Reason: Pain, Severe (Pain Scale 7-10) Last Admin: 12/04/23 05:27 Dose: 1 mg Lactated Ringer's (Lr) 1,000 mls @ 150 mls/hr IVCONT .Q6H40M [facility] Last Admin: 12/04/23 04:26 Dose: Not Given Ceftriaxone Sodium 1 gm/ (Sodium Chloride) 50 mls @ 100 mls/hr IV Q24H [facility] Last Infusion: 12/03/23 21:36 Dose: Infused Metronidazole (Flagyl) 500 mg in 100 mls @ 100 mls/hr IV Q8H [facility] Last Infusion: 12/04/23 06:32 Dose: Infused Losartan Potassium (Losartan Potassium 50 Mg Tablet) 100 mg PO DAILY [facility]; Protocol Melatonin (Melatonin 3 Mg Tablet) 6 mg PO BEDTIME PRN PRN Reason: Insomnia Ondansetron HCl (Ondansetron Hcl 4 Mg/2 Ml Vial) 4 mg IVPUSH Q8H PRN PRN Reason: Nausea and Vomiting Sodium Chloride (0.9 % Sodium Chloride Flush 3 Ml Syringe) 3 ml IVFLUSH QSHIFT [facility] Last Admin: 12/03/23 19:50 Dose: 3 ml Home Medications ?Medication ?Instructions ?Recorded ?Confirmed ?Last Taken ?Type amlodipine 5 mg tablet 5 mg PO DAILY 12/03/23 12/03/23 Unknown History hydrochlorothiazide 25 mg tablet 25 mg PO DAILY 12/03/23 12/03/23 Unknown History losartan 100 mg tablet 100 mg PO DAILY 12/03/23 12/03/23 Unknown History Physical Exam Vital Signs: Vital Signs: Last Vital Signs Temp 97.4 F 12/04/23 04:00 Pulse 86 12/04/23 04:00 Resp 18 12/04/23 04:00 BP 162/80 H 12/04/23 04:00 Pulse Ox 94 12/04/23 04:00 O2 Del Method Room Air 12/04/23 04:00 BMI result Body Mass Index 42.0 GI: Other: Very corpulent abdomen. Mild epigastric/right upper quadrant tenderness. No evidence of any guarding, rebound, or rigidity. Results Labs 12/04/23 05:36 12/04/23 05:36 Labs: Abnormal lab results 12/03/23 12/04/23 Range/Units 06:07 05:36 WBC 15.0 H (4.8-10.8) X10*3/uL PT 15.1 H (11.1-13.3) SEC INR 1.2 H (0.9-1.1) Potassium 3.1 L (3.3-5.1) mmol/L BUN 17 H (9-16) mg/dL Total Bilirubin 2.1 H (0.0-1.0) mg/dL AST 57 H (5-37) U/L ALT 192 H (0-40) U/L Alkaline Phosphatase 255 H (39-117) U/L Ur Specific [place] >= 1.030 H (1.005-1.025) Urine Protein 30 (1+) H (Neg-Trace) mg/dL Ur Leukocyte Esterase Trace H (Negative) Short CBC 12/04/23 Range/Units 05:36 WBC 15.0 H (4.8-10.8) X10*3/uL Hgb 14.9 (14.0-18.0) g/dl Hct 42.2 (42.0-52.0) % Plt Count 256 (160-400) X10*3/uL BMP 12/04/23 05:36 Sodium 139 Potassium 3.1 L Chloride 100 Carbon Dioxide 28 BUN 17 H Creatinine 0.84 Calcium 9.3 Liver Function 12/04/23 Range/Units 05:36 Total Bilirubin 2.1 H (0.0-1.0) mg/dL AST 57 H (5-37) U/L ALT 192 H (0-40) U/L Alkaline Phosphatase 255 H (39-117) U/L Albumin 3.6 (3.5-5.0) g/dL Urine 12/03/23 Range/Units 06:07 Urine Color Dark Yellow Urine Appearance Clear Urine pH 6.0 (5.0-9.0) Ur Specific [place] >= 1.030 H (1.005-1.025) Urine Protein 30 (1+) H (Neg-Trace) mg/dL Urine Glucose (UA) Negative (Negative) mg/dL All other labs normal. Assessment and Plan (1) Acute gallstone pancreatitis: Status: Acute Plan Current plan is continue restorative measures. Once patient is clinically improved and liver function tests/lipase normalized, patient will need laparoscopic cholecystectomy with possible cholangiogram. To follow Procedures Date of Service Date of Service: 12/04/23
[2023-12-04 07:16] VITALS: BP 142/70; PULSE 81; RESP 18; TEMP 36.5; O2SAT 94
[2023-12-04 07:45] LABS: C Reactive Protein 12.35 mg/dL (< or = 0.50); Magnesium 1.6 mg/dL (1.6-2.6)
[2023-12-04] MEDS: 0.9 % Sodium Chloride Flush 3 ML SYRINGE IVFLUSH ×2 (08:00→21:43)
[2023-12-04 08:01] LABS: Lipase 972 U/L (8-78)
--- NOTE | 2023-12-04 09:25 | P.PNIM_ITS ---
Subjective Subjective Date of Service: 12/04/23 Interval History: epigastric pain; no N/V Review of Systems Review of Systems: Yes all other systems are reviewed and are negative Physical Exam 2 Vital Signs: Vital Signs: Last Vital Signs Temp 97.7 F 12/04/23 07:16 Pulse 81 12/04/23 07:16 Resp 18 12/04/23 07:16 BP 142/70 H 12/04/23 07:16 Pulse Ox 94 12/04/23 07:16 O2 Del Method Room Air 12/04/23 07:16 BMI result Body Mass Index 42.0 Gen: in no acute distress HEENT: sclera anicteric, moist mucus membranes Neck: supple Lungs: clear to auscultation bilaterally Heart: regular rate and rhythm, no murmurs Abd: soft, epigastric tenderness, non-distended, obese Ext: no edema Skin: warm/well-perfused Neuro: alert and oriented x3, no focal findings Psych: appropriate affect Objective Data Active Medications Acetaminophen (Acetaminophen 325 Mg Tablet) 650 mg PO Q6H PRN PRN Reason: Pain, Mild (Pain Scale 1-3) Amlodipine Besylate (Amlodipine Besylate 5 Mg Tablet) 5 mg PO DAILY [facility]; Protocol Hydromorphone HCl (Hydromorphone Hcl 1 Mg/Ml Syringe) 1 mg IVPUSH Q4H PRN; Protocol PRN Reason: Pain, Severe (Pain Scale 7-10) Last Admin: 12/04/23 05:27 Dose: 1 mg Documented By: RUIZ Lactated Ringer's (Lr) 1,000 mls @ 150 mls/hr IVCONT .Q6H40M [facility] Last Admin: 12/04/23 04:26 Dose: Not Given Documented By: RUIZ Non-Admin Reason: Physician Held Med Ceftriaxone Sodium 1 gm/ (Sodium Chloride) 50 mls @ 100 mls/hr IV Q24H [facility] Last Infusion: 12/03/23 21:36 Dose: Infused Documented By: RUIZ Metronidazole (Flagyl) 500 mg in 100 mls @ 100 mls/hr IV Q8H [facility] Last Infusion: 12/04/23 06:32 Dose: Infused Documented By: RUIZ Losartan Potassium (Losartan Potassium 50 Mg Tablet) 100 mg PO DAILY [facility]; Protocol Melatonin (Melatonin 3 Mg Tablet) 6 mg PO BEDTIME PRN PRN Reason: Insomnia Ondansetron HCl (Ondansetron Hcl 4 Mg/2 Ml Vial) 4 mg IVPUSH Q8H PRN PRN Reason: Nausea and Vomiting Sodium Chloride (0.9 % Sodium Chloride Flush 3 Ml Syringe) 3 ml IVFLUSH QSHIFT [facility] Last Admin: 12/03/23 19:50 Dose: 3 ml Documented By: RUIZ Labs 12/04/23 05:36 12/04/23 05:36 Labs: Laboratory Results - last 24 hr 12/04/23 05:36 MCV 85.4 MCH 30.2 MCHC 35.3 RDW 12.4 Plt Count 256 MPV 10.4 Absolute Nucleated RBC 0.000 Nucleated RBC % (auto) 0.0 PT 15.1 H INR 1.2 H Anion Gap 14 Estim Creat Clear Calc 142.5 Estimated GFR > 60 Random Glucose 92 Calcium 9.3 Magnesium 1.6 Total Bilirubin 2.1 H AST 57 H ALT 192 H Alkaline Phosphatase 255 H C-Reactive Protein 12.35 H Total Protein 7.0 Albumin 3.6 Lipase 972 H Microbiology Microbiology Results: Microbiology 12/02/23 22:56 Blood Culture - Preliminary Blood - Venous No growth after 24 hours. 12/02/23 22:39 Blood Culture - Preliminary Blood - Venous No growth after 24 hours. Assessment and Plan (1) Acute gallstone pancreatitis: Status: Acute Plan d2 53yo M with HTN, HLD, GERD, BPH presenting with abd pain and found to have pancreatitis + gallstones/sludge acute gallstone pancreatitis - likely passed CBD stone; discussed with GI; consulted Gen Surg; lap isa once peripancreatic inflammation imrpoves further - continue ceftriaxone/metronidazole 12/02- - IV fluids, clear liquid diet, prn hydromorphone hypoK - replete PO, recheck level in AM HTN - continue amlodipine + losartan, hold HCTZ HLD - continue atorvastatin morbid obesity - diet/exercise counseling VTE ppx - LMWH dispo - eventual home In my clinical judgment, the patient requires continued hospitalization for the following reasons: IV ABX, surgical management Total time managing care of this patient today: 35 minutes. Quality Stroke Does the patient have a stroke diagnosis?: No VTE Prior VTE?: No VTE Risk Level:: Medical - moderate - high VTE Device Contraindication: Treatment Not Indicated VTE Drug Contraindication: N/A - Med Ordered
[2023-12-04 09:40] VITALS: BP 142/70
[2023-12-04] MEDS: Losartan Potassium 50 MG TABLET 100 MG PO (09:40)
[2023-12-04] MEDS: amLODIPine Besylate 5 MG TABLET PO (09:40)
[2023-12-04] MEDS: Potassium Chloride Packet 20 MEQ PACKET 40 MEQ PO (09:41)
[2023-12-04] MEDS: Lactated Ringers 1,000 ML 150 ML IVCONT ×2 (11:20→17:06)
[2023-12-04] MEDS: ondansetron HCL 4 MG/2 ML VIAL IVPUSH (13:54)
--- NOTE | 2023-12-04 14:30 | MHC.CM.PN ---
pt lives with is independent and woring chip,not need servies when dcd
[2023-12-04 15:08] VITALS: BP 162/80; PULSE 81; RESP 16; TEMP 36.7; O2SAT 93
[2023-12-04 19:18] VITALS: BP 145/67; PULSE 85; RESP 18; TEMP 36.8; O2SAT 94
[2023-12-04] MEDS: Acetaminophen 325 MG TABLET 650 MG PO (19:45)
--- NOTE | 2023-12-04 19:46 | PC.NURSE ---
This RN continuing care at 1900. Pt resting comfortably in bed, preferred Tylenol for 4/10 abd pain. Meds given per SEP. Call mckeon within reach.
[2023-12-04] MEDS: cefTRIAXone sodium 1 GM in 0.9 % Sodium Chloride 50 ML IV (21:01)
[2023-12-05] MEDS: HYDROmorphone HCl 1 MG/ML SYRINGE IVPUSH ×3 (01:06→12:52)
[2023-12-05] MEDS: Lactated Ringers 1,000 ML 150 ML IVCONT ×3 (01:11→20:15)
[2023-12-05 03:11] VITALS: BP 150/72; PULSE 80; RESP 16; TEMP 36.1; O2SAT 93
[2023-12-05] MEDS: metroNIDAZOLE/NS 500 MG/100 ML PIGGYBACK 100 MG IV ×3 (05:33→21:35)
[2023-12-05 06:16] LABS: Hematocrit 41.3 % (42.0-52.0); Hemoglobin 14.5 g/dl (14.0-18.0); Mean Corpuscular HGB Conc 35.1 g/dl (31.0-36.0); Mean Corpuscular Hemoglobin 30.3 pg (27.0-33.0); Mean Corpuscular Volume 86.4 fL (80.0-98.0); Mean Platelet Volume 10.6 fL (9.4-12.4); Platelet Count 232 X10*3/uL (160-400); Red Blood Count 4.78 X10*6/uL (4.60-5.80); Red Cell Distribution Width 12.2 % (11.0-16.0); White Blood Count 14.1 X10*3/uL (4.8-10.8)
[2023-12-05 06:54] LABS: Alanine Aminotransferase 123 U/L (0-40); Albumin Level 3.5 g/dL (3.5-5.0); Alkaline Phosphatase 193 U/L (39-117); Anion Gap 14 (12-20); Aspartate Amino Transferase 32 U/L (5-37); Bilirubin Total 1.5 mg/dL (0.0-1.0); Blood Urea Nitrogen 11 mg/dL (9-16); Calcium 9.2 mg/dL (8.4-10.2); Carbon Dioxide 27 mmol/L (22-29); Chloride 103 mmol/L (96-108); Creatinine Clr Calc Pharmacy 155.5; Estimated Glomerular Filt Rate > 60; Glucose Random 89 mg/dL (60-115); Potassium 2.6 mmol/L (3.3-5.1); Sodium 141 mmol/L (135-145); Total Protein 7.1 g/dL (6.5-8.0)
[2023-12-05 07:26] VITALS: BP 151/73; PULSE 78; RESP 18; TEMP 36.8; O2SAT 92
--- NOTE | 2023-12-05 07:42 | P.PNGS_ITS ---
Subjective Subjective Date of Service: 12/05/23 Interval history: Patient some abdominal symptoms markedly improved. Tolerating liquids. Labs also downtrending well. Physical Exam 2 Vital Signs: Vital Signs: Last Vital Signs Temp 98.3 F 12/05/23 07:26 Pulse 78 12/05/23 07:26 Resp 18 12/05/23 07:26 BP 151/73 H 12/05/23 07:26 Pulse Ox 92 12/05/23 07:26 O2 Del Method Room Air 12/05/23 07:26 BMI result Body Mass Index 42.0 GI: Other: Corpulent abdomen. Mild epigastric tenderness, much better than prior exams. Objective Data Active Medications Acetaminophen (Acetaminophen 325 Mg Tablet) 650 mg PO Q6H PRN PRN Reason: Pain, Mild (Pain Scale 1-3) Last Admin: 12/04/23 19:45 Dose: 650 mg Documented By: DANYEL Amlodipine Besylate (Amlodipine Besylate 5 Mg Tablet) 5 mg PO DAILY [facility]; Protocol Last Admin: 12/04/23 09:40 Dose: 5 mg Documented By: MICHAEL Hydromorphone HCl (Hydromorphone Hcl 1 Mg/Ml Syringe) 1 mg IVPUSH Q4H PRN; Protocol PRN Reason: Pain, Severe (Pain Scale 7-10) Last Admin: 12/05/23 01:06 Dose: 1 mg Documented By: DANYEL Lactated Ringer's (Lr) 1,000 mls @ 150 mls/hr IVCONT .Q6H40M [facility] Last Infusion: 12/05/23 06:37 Dose: 150 mls/hr Documented By: DANYEL Ceftriaxone Sodium 1 gm/ (Sodium Chloride) 50 mls @ 100 mls/hr IV Q24H [facility] Last Infusion: 12/04/23 21:31 Dose: Infused Documented By: DANYEL Metronidazole (Flagyl) 500 mg in 100 mls @ 100 mls/hr IV Q8H [facility] Last Infusion: 12/05/23 06:33 Dose: Infused Documented By: DANYEL Potassium Chloride (Potassium Chloride/H20) 10 meq in 100 mls @ 100 mls/hr IV Q1H [facility] Stop: 12/05/23 11:29 Losartan Potassium (Losartan Potassium 50 Mg Tablet) 100 mg PO DAILY [facility]; Protocol Last Admin: 12/04/23 09:40 Dose: 100 mg Documented By: MICHAEL Melatonin (Melatonin 3 Mg Tablet) 6 mg PO BEDTIME PRN PRN Reason: Insomnia Ondansetron HCl (Ondansetron Hcl 4 Mg/2 Ml Vial) 4 mg IVPUSH Q8H PRN PRN Reason: Nausea and Vomiting Last Admin: 12/04/23 13:54 Dose: 4 mg Documented By: MICHAEL Sodium Chloride (0.9 % Sodium Chloride Flush 3 Ml Syringe) 3 ml IVFLUSH QSHIFT [facility] Last Admin: 12/04/23 21:48 Dose: Not Given Documented By: DANYEL Non-Admin Reason: IV Running Labs 12/05/23 05:42 12/05/23 05:42 Labs: Laboratory Results - last 24 hr 12/04/23 12/05/23 05:36 05:42 MCV 86.4 MCH 30.3 MCHC 35.1 RDW 12.2 Plt Count 232 MPV 10.6 Absolute Nucleated RBC 0.000 Nucleated RBC % (auto) 0.0 Anion Gap 14 Estim Creat Clear Calc 155.5 Estimated GFR > 60 Random Glucose 89 Calcium 9.2 Magnesium 1.6 Total Bilirubin 1.5 H AST 32 ALT 123 H Alkaline Phosphatase 193 H C-Reactive Protein 12.35 H Total Protein 7.1 Albumin 3.5 Lipase 972 H Microbiology Microbiology Results: Microbiology 12/02/23 22:56 Blood Culture - Preliminary Blood - Venous No growth after 48 hours. 12/02/23 22:39 Blood Culture - Preliminary Blood - Venous No growth after 48 hours. Procedures Date of Service Date of Service: 12/05/23 Progress Note: A&P Assessment and plan (1) Acute gallstone pancreatitis: Status: Acute Plan Risks, benefits, and alternatives laparoscopic possible open cholecystectomy reviewed with the patient and included but not limited to bleeding, infection, recurrence of symptoms, numbness, pain, scarring, bowel or bile duct injury or leak and the patient wishes to proceed. All questions answered. Patient is tentatively scheduled for tomorrow. Time Spent With Patient Time: Total time managing care of this patient today ____ minutes. Quality Stroke Does the patient have a stroke diagnosis?: No VTE Prior VTE?: No VTE Risk Level:: Medical - moderate - high VTE Device Contraindication: Treatment Not Indicated VTE Drug Contraindication: N/A - Med Ordered
[2023-12-05 07:53] LABS: Magnesium 1.6 mg/dL (1.6-2.6)
--- NOTE | 2023-12-05 08:04 | MHC.SHP ---
Pre-Procedural Eval Section A - 24 Hr Update-Section A only Date of Service: 12/05/23 The patient is an INPATIENT: Yes Changes since office visit: No Cold of Flu in the past 2 weeks, No New Medical Problems, No Changes in Medication and No Patient answered all questions Section B - Complete if H&P > 30 days Chief Complaint: Abdominal pain Allergies: Allergies Allergy/AdvReac Type Severity Reaction Status Date / Time penicillin G [Penicillin G] Allergy Mild UNKNOWN Verified 12/02/23 16:24 Plan I have reviewed the history and physical and performed a pertinent physical examination on my patient. No changes have occurred unless specified. Time Spent With Patient Time: Total time managing care of this patient today ____ minutes.
[2023-12-05 08:47] VITALS: BP 151/73
[2023-12-05] MEDS: Losartan Potassium 50 MG TABLET 100 MG PO (08:47)
[2023-12-05] MEDS: Potassium Chloride Packet 20 MEQ PACKET 40 MEQ PO (08:47)
[2023-12-05] MEDS: amLODIPine Besylate 5 MG TABLET PO (08:47)
[2023-12-05] MEDS: Potassium Chloride/H20 10 MEQ/100 ML PIGGYBACK 100 MEQ IV ×4 (08:49→11:45)
[2023-12-05] MEDS: 0.9 % Sodium Chloride Flush 3 ML SYRINGE IVFLUSH ×2 (08:50→21:01)
--- NOTE | 2023-12-05 10:34 | P.PNIM_ITS ---
Subjective Subjective Date of Service: 12/05/23 Interval History: Abd pain improved, tolerating liquids, passing gas, no N/V Review of Systems Review of Systems: Yes all other systems are reviewed and are negative Physical Exam 2 Vital Signs: Vital Signs: Last Vital Signs Temp 98.3 F 12/05/23 07:26 Pulse 78 12/05/23 07:26 Resp 18 12/05/23 07:26 BP 151/73 H 12/05/23 08:47 Pulse Ox 92 12/05/23 07:26 O2 Del Method Room Air 12/05/23 07:26 BMI result Body Mass Index 42.0 Gen: in no acute distress HEENT: sclera anicteric, moist mucus membranes Neck: supple Lungs: clear to auscultation bilaterally Heart: regular rate and rhythm, no murmurs Abd: soft, epigastric tenderness, non-distended, obese Ext: no edema Skin: warm/well-perfused Neuro: alert and oriented x3, no focal findings Psych: appropriate affect Objective Data Active Medications Acetaminophen (Acetaminophen 325 Mg Tablet) 650 mg PO Q6H PRN PRN Reason: Pain, Mild (Pain Scale 1-3) Last Admin: 12/04/23 19:45 Dose: 650 mg Documented By: DANYEL Amlodipine Besylate (Amlodipine Besylate 5 Mg Tablet) 5 mg PO DAILY [facility]; Protocol Last Admin: 12/05/23 08:47 Dose: 5 mg Documented By: MICHAEL Hydromorphone HCl (Hydromorphone Hcl 1 Mg/Ml Syringe) 1 mg IVPUSH Q4H PRN; Protocol PRN Reason: Pain, Severe (Pain Scale 7-10) Last Admin: 12/05/23 08:44 Dose: 1 mg Documented By: MICHAEL Lactated Ringer's (Lr) 1,000 mls @ 150 mls/hr IVCONT .Q6H40M [facility] Last Infusion: 12/05/23 08:55 Dose: Infused Documented By: MICHAEL Ceftriaxone Sodium 1 gm/ (Sodium Chloride) 50 mls @ 100 mls/hr IV Q24H [facility] Last Infusion: 12/04/23 21:31 Dose: Infused Documented By: DANYEL Metronidazole (Flagyl) 500 mg in 100 mls @ 100 mls/hr IV Q8H [facility] Last Infusion: 12/05/23 06:33 Dose: Infused Documented By: DANYEL Potassium Chloride (Potassium Chloride/H20) 10 meq in 100 mls @ 100 mls/hr IV Q1H [facility] Stop: 12/05/23 11:29 Last Admin: 12/05/23 09:46 Dose: 100 mls/hr Documented By: MICHAEL Losartan Potassium (Losartan Potassium 50 Mg Tablet) 100 mg PO DAILY [facility]; Protocol Last Admin: 12/05/23 08:47 Dose: 100 mg Documented By: MICHAEL Melatonin (Melatonin 3 Mg Tablet) 6 mg PO BEDTIME PRN PRN Reason: Insomnia Ondansetron HCl (Ondansetron Hcl 4 Mg/2 Ml Vial) 4 mg IVPUSH Q8H PRN PRN Reason: Nausea and Vomiting Last Admin: 12/04/23 13:54 Dose: 4 mg Documented By: MICHAEL Sodium Chloride (0.9 % Sodium Chloride Flush 3 Ml Syringe) 3 ml IVFLUSH QSHIFT [facility] Last Admin: 12/05/23 08:50 Dose: 3 ml Documented By: MICHAEL Labs 12/05/23 05:42 12/05/23 05:42 Labs: Laboratory Results - last 24 hr 12/05/23 05:42 MCV 86.4 MCH 30.3 MCHC 35.1 RDW 12.2 Plt Count 232 MPV 10.6 Absolute Nucleated RBC 0.000 Nucleated RBC % (auto) 0.0 Anion Gap 14 Estim Creat Clear Calc 155.5 Estimated GFR > 60 Random Glucose 89 Calcium 9.2 Magnesium 1.6 Total Bilirubin 1.5 H AST 32 ALT 123 H Alkaline Phosphatase 193 H Total Protein 7.1 Albumin 3.5 Microbiology Microbiology Results: Microbiology 12/02/23 22:56 Blood Culture - Preliminary Blood - Venous No growth after 48 hours. 12/02/23 22:39 Blood Culture - Preliminary Blood - Venous No growth after 48 hours. Assessment and Plan (1) Acute gallstone pancreatitis: Status: Acute Plan d3 53yo M with HTN, HLD, GERD, BPH presenting with abd pain and found to have pancreatitis + gallstones/sludge acute gallstone pancreatitis - likely passed CBD stone with Tbili dropping quickly per GI; Dr Salas to do lap-isa tomorrow; NPO p MN - continue ceftriaxone/metronidazole 12/02- - IV fluids, clear liquid diet, prn hydromorphone hypoK - replete IV+PO, recheck level in AM HTN - continue amlodipine + losartan, hold HCTZ HLD - continue atorvastatin morbid obesity - diet/exercise counseling VTE ppx - LMWH dispo - eventual home In my clinical judgment, the patient requires continued hospitalization for the following reasons: IV ABX, surgical management Total time managing care of this patient today: 35 minutes. Quality Stroke Does the patient have a stroke diagnosis?: No VTE Prior VTE?: No VTE Risk Level:: Medical - moderate - high VTE Device Contraindication: Treatment Not Indicated VTE Drug Contraindication: N/A - Med Ordered
--- NOTE | 2023-12-05 14:09 | MHC.CM.PN ---
pt not medically ready for dc pt to have isa tomorrow
[2023-12-05 15:16] VITALS: BP 135/64; PULSE 78; RESP 16; TEMP 36.2; O2SAT 93
[2023-12-05 18:57] VITALS: BP 147/67; PULSE 76; RESP 18; TEMP 36.3; O2SAT 96
[2023-12-05] MEDS: cefTRIAXone sodium 1 GM in 0.9 % Sodium Chloride 50 ML IV (21:00)
[2023-12-06] VITALS (14 sets, daily range): BP systolic 143–170; BP diastolic 69–89; PULSE 73–92; RESP 12–18; TEMP 36.4–36.7; O2SAT 92–97
[2023-12-06] MEDS: Lactated Ringers 1,000 ML 150 ML IVCONT ×2 (04:31→21:55)
[2023-12-06] MEDS: metroNIDAZOLE/NS 500 MG/100 ML PIGGYBACK 100 MG IV ×2 (05:20→22:28)
[2023-12-06 07:35] LABS: Alanine Aminotransferase 84 U/L (0-40); Albumin Level 3.4 g/dL (3.5-5.0); Alkaline Phosphatase 169 U/L (39-117); Anion Gap 13 (12-20); Aspartate Amino Transferase 26 U/L (5-37); Bilirubin Total 1.2 mg/dL (0.0-1.0); Blood Urea Nitrogen 7 mg/dL (9-16); Calcium 9.5 mg/dL (8.4-10.2); Carbon Dioxide 29 mmol/L (22-29); Chloride 104 mmol/L (96-108); Creatinine Clr Calc Pharmacy 153.5; Estimated Glomerular Filt Rate > 60; Glucose Random 96 mg/dL (60-115); Lipase 95 U/L (8-78); Magnesium 1.5 mg/dL (1.6-2.6); Potassium 3.2 mmol/L (3.3-5.1); Sodium 143 mmol/L (135-145); Total Protein 6.9 g/dL (6.5-8.0)
[2023-12-06] MEDS: amLODIPine Besylate 5 MG TABLET PO (07:44)
[2023-12-06] MEDS: Losartan Potassium 50 MG TABLET 100 MG PO (07:45)
--- NOTE | 2023-12-06 08:23 | P.PNIM_ITS ---
Subjective Subjective Date of Service: 12/06/23 Interval History: Abd pain improved, no further episodes of nausea or vomiting. NPO for lap isa Review of Systems All review of systems negative except as noted in HPI Constitutional Constitutional: Reports poor appetite Cardiovascular Cardiovascular: Reports no additional cardiovascular complaints Respiratory Respiratory: Reports no additional respiratory complaints Gastrointestinal Gastrointestinal: Reports abdominal pain, Reports nausea and Reports vomiting Genitourinary Genitourinary: Reports no additional male genitourinary complaints Neurologic Neurologic: Reports system reviewed and no additional complaints, except as documented Physical Exam 2 Vital Signs: Vital Signs: Last Vital Signs Temp 98 F 12/06/23 06:47 Pulse 77 12/06/23 06:47 Resp 17 12/06/23 06:47 BP 149/70 H 12/06/23 07:17 Pulse Ox 96 12/06/23 06:47 O2 Del Method Room Air 12/06/23 04:00 BMI result Body Mass Index 42.0 Gen: in no acute distress HEENT: sclera anicteric, moist mucus membranes Neck: supple Lungs: clear to auscultation bilaterally Heart: regular rate and rhythm, no murmurs Abd: soft, right upper quadrant tenderness, non-distended, obese Ext: no edema Skin: warm/well-perfused Neuro: alert and oriented x3, no focal findings Psych: appropriate affect Objective Data Active Medications Acetaminophen (Acetaminophen 325 Mg Tablet) 650 mg PO Q6H PRN PRN Reason: Pain, Mild (Pain Scale 1-3) Last Admin: 12/04/23 19:45 Dose: 650 mg Documented By: DANYEL Amlodipine Besylate (Amlodipine Besylate 5 Mg Tablet) 5 mg PO DAILY [facility]; Protocol Last Admin: 12/06/23 07:44 Dose: 5 mg Documented By: AKILA Hydromorphone HCl (Hydromorphone Hcl 1 Mg/Ml Syringe) 1 mg IVPUSH Q4H PRN; Protocol PRN Reason: Pain, Severe (Pain Scale 7-10) Last Admin: 12/05/23 12:52 Dose: 1 mg Documented By: MICHAEL Lactated Ringer's (Lr) 1,000 mls @ 150 mls/hr IVCONT .Q6H40M [facility] Last Infusion: 12/06/23 06:21 Dose: 150 mls/hr Documented By: RUIZ Ceftriaxone Sodium 1 gm/ (Sodium Chloride) 50 mls @ 100 mls/hr IV Q24H [facility] Last Infusion: 12/05/23 21:36 Dose: Infused Documented By: RUIZ Metronidazole (Flagyl) 500 mg in 100 mls @ 100 mls/hr IV Q8H [facility] Last Infusion: 12/06/23 06:21 Dose: Infused Documented By: RUIZ Losartan Potassium (Losartan Potassium 50 Mg Tablet) 100 mg PO DAILY [facility]; Protocol Last Admin: 12/06/23 07:45 Dose: 100 mg Documented By: AKILA Melatonin (Melatonin 3 Mg Tablet) 6 mg PO BEDTIME PRN PRN Reason: Insomnia Ondansetron HCl (Ondansetron Hcl 4 Mg/2 Ml Vial) 4 mg IVPUSH Q8H PRN PRN Reason: Nausea and Vomiting Last Admin: 12/04/23 13:54 Dose: 4 mg Documented By: MICHAEL Sodium Chloride (0.9 % Sodium Chloride Flush 3 Ml Syringe) 3 ml IVFLUSH QSHIFT [facility] Last Admin: 12/06/23 07:49 Dose: Not Given Documented By: AKILA Non-Admin Reason: IV Running Labs 12/05/23 05:42 12/06/23 06:42 Labs: Laboratory Results - last 24 hr 12/06/23 06:42 Hold Purple Top SEE NOTE Anion Gap 13 Estim Creat Clear Calc 153.5 Estimated GFR > 60 Random Glucose 96 Calcium 9.5 Magnesium 1.5 L Total Bilirubin 1.2 H AST 26 ALT 84 H Alkaline Phosphatase 169 H Total Protein 6.9 Albumin 3.4 L Lipase 95 H Assessment and Plan (1) Acute gallstone pancreatitis: Status: Acute Plan d3 53yo M with HTN, HLD, GERD, BPH presenting with abd pain and found to have pancreatitis + gallstones/sludge acute gallstone pancreatitis - likely passed CBD stone with Tbili dropping quickly per GI; Dr Salas to do lap-isa today - continue ceftriaxone/metronidazole 12/02- - IV fluids, NPO, prn hydromorphone hypoK - repleted IV, recheck level in AM HTN - continue amlodipine, hold losartan + HCTZ HLD - continue atorvastatin morbid obesity - diet/exercise counseling VTE ppx - Mechanical dispo - eventual home In my clinical judgment, the patient requires continued hospitalization for the following reasons: IV ABX, surgical management Quality Stroke Does the patient have a stroke diagnosis?: No VTE Prior VTE?: No VTE Risk Level:: Medical - moderate - high VTE Device Contraindication: Treatment Not Indicated VTE Drug Contraindication: N/A - Med Ordered
[2023-12-06] MEDS: Potassium Chloride/H20 10 MEQ/100 ML PIGGYBACK 100 MEQ IV ×4 (09:10→15:15)
--- NOTE | 2023-12-06 12:56 | HO.ANESPROP2 ---
[facility] Active Problems Active Problems: All Active Problems (Updated 12/02/23 @ 23:24 by Michael Ferris MD) Acute gallstone pancreatitis (Acute) Ureteric stone (Acute) Past Medical History Medical History Hyperlipemia Morbid (severe) obesity due to excess calories Hypertension Family History Family history of problems with anesthesia: No Surgical History History of Problems with Anesthesia: No Social History Social History Household Members: Family Housing: House Do you presently have visiting nurse or other home services: No Alcohol intake: current Alcohol intake frequency: a few times a week Patient Tobacco Use Status: Never used Tobacco service: No Meds Allergies Allergy/AdvReac Type Severity Reaction Status Date / Time penicillin G [Penicillin G] Allergy Mild UNKNOWN Verified 12/02/23 16:24 Active Medications: Current Medications Acetaminophen (Acetaminophen 325 Mg Tablet) 650 mg PO Q6H PRN PRN Reason: Pain, Mild (Pain Scale 1-3) Last Admin: 12/04/23 19:45 Dose: 650 mg Amlodipine Besylate (Amlodipine Besylate 5 Mg Tablet) 5 mg PO DAILY [facility]; Protocol Last Admin: 12/06/23 07:44 Dose: 5 mg Hydromorphone HCl (Hydromorphone Hcl 1 Mg/Ml Syringe) 1 mg IVPUSH Q4H PRN; Protocol PRN Reason: Pain, Severe (Pain Scale 7-10) Last Admin: 12/05/23 12:52 Dose: 1 mg Lactated Ringer's (Lr) 1,000 mls @ 150 mls/hr IVCONT .Q6H40M [facility] Last Infusion: 12/06/23 12:38 Dose: Infused Ceftriaxone Sodium 1 gm/ (Sodium Chloride) 50 mls @ 100 mls/hr IV Q24H [facility] Last Infusion: 12/05/23 21:36 Dose: Infused Metronidazole (Flagyl) 500 mg in 100 mls @ 100 mls/hr IV Q8H [facility] Last Infusion: 12/06/23 06:21 Dose: Infused Losartan Potassium (Losartan Potassium 50 Mg Tablet) 100 mg PO DAILY [facility]; Protocol Last Admin: 12/06/23 07:45 Dose: 100 mg Melatonin (Melatonin 3 Mg Tablet) 6 mg PO BEDTIME PRN PRN Reason: Insomnia Ondansetron HCl (Ondansetron Hcl 4 Mg/2 Ml Vial) 4 mg IVPUSH Q8H PRN PRN Reason: Nausea and Vomiting Last Admin: 12/04/23 13:54 Dose: 4 mg Sodium Chloride (0.9 % Sodium Chloride Flush 3 Ml Syringe) 3 ml IVFLUSH QSHIFT [facility] Last Admin: 12/06/23 07:49 Dose: Not Given Home Medications ?Medication ?Instructions ?Recorded ?Confirmed ?Last Taken ?Type amlodipine 5 mg tablet 5 mg PO DAILY 12/03/23 12/03/23 Unknown History hydrochlorothiazide 25 mg tablet 25 mg PO DAILY 12/03/23 12/03/23 Unknown History losartan 100 mg tablet 100 mg PO DAILY 12/03/23 12/03/23 Unknown History Exam Height,Weight and Vital Signs: Height 5 ft 10 in Weight 132.7 kg Last Vital Signs Temp 97.5 F 12/06/23 12:13 Pulse 79 12/06/23 12:13 Resp 18 12/06/23 12:13 BP 170/89 H 12/06/23 12:13 Pulse Ox 97 12/06/23 12:13 O2 Del Method Room Air 12/06/23 12:13 Pertinent Lab Results Pertinent Lab Results: lLaboratory Tests 12/02/23 12/02/23 12/03/23 17:00 22:39 04:56 WBC 12.6 H 12.3 H RBC 5.87 H 5.35 Hgb 17.4 16.3 Hct 49.0 44.9 MCV 83.5 83.9 MCH 29.6 30.5 MCHC 35.5 36.3 H RDW 11.9 12.1 Plt Count 327 291 MPV 9.6 10.3 Immature Gran % (Auto) 0.5 H 0.4 Neut % (Auto) 79.7 H 81.8 H Lymph % (Auto) 9.0 L 8.0 L [place] % (Auto) 9.4 9.3 Eos % (Auto) 1.2 0.2 Baso % (Auto) 0.2 0.3 Lymph # (Auto) 1.1 L 1.0 L [place] # (Auto) 1.2 1.2 Eos # (Auto) 0.2 0.0 Baso # (Auto) 0.0 0.0 Abs Immat Gran (auto) 0.06 H 0.05 H Absolute Neuts (auto) 10.0 H 10.1 H Absolute Nucleated RBC 0.000 0.000 Nucleated RBC % (auto) 0.0 0.0 Hold Purple Top PT INR Sodium 139 138 Potassium 3.0 L 3.1 L Chloride 98 101 Carbon Dioxide 26 24 Anion Gap 18 16 BUN 15 16 Creatinine 1.14 0.95 Estim Creat Clear Calc 105.0 126.0 Estimated GFR > 60 > 60 Random Glucose 186 H 133 H Lactic Acid 1.3 Calcium 10.6 H 9.6 D Magnesium 1.9 Total Bilirubin 7.4 H 7.1 H Direct Bilirubin 5.1 H AST 204 H 154 H ALT 375 H 317 H Alkaline Phosphatase 299 H 306 H C-Reactive Protein Total Protein 8.5 H 7.4 Albumin 4.4 3.9 Triglycerides 141 Cholesterol 243 H LDL Cholesterol, Calc 170 H HDL Cholesterol 45 Lipase > 3000 H Urine Color Urine Appearance Urine pH Ur Specific [place] Urine Protein Urine Glucose (UA) Urine Ketones Urine Blood Urine Nitrite Ur Leukocyte Esterase Urine RBC Urine WBC Ur Squamous Epith Cells Urine Bacteria Hyaline Casts 12/03/23 12/04/23 12/05/23 06:07 05:36 05:42 WBC 15.0 H 14.1 H RBC 4.94 4.78 Hgb 14.9 14.5 Hct 42.2 41.3 L MCV 85.4 86.4 MCH 30.2 30.3 MCHC 35.3 35.1 RDW 12.4 12.2 Plt Count 256 232 MPV 10.4 10.6 Immature Gran % (Auto) Neut % (Auto) Lymph % (Auto) [place] % (Auto) Eos % (Auto) Baso % (Auto) Lymph # (Auto) [place] # (Auto) Eos # (Auto) Baso # (Auto) Abs Immat Gran (auto) Absolute Neuts (auto) Absolute Nucleated RBC 0.000 0.000 Nucleated RBC % (auto) 0.0 0.0 Hold Purple Top PT 15.1 H INR 1.2 H Sodium 139 141 Potassium 3.1 L 2.6 L* Chloride 100 103 Carbon Dioxide 28 27 Anion Gap 14 14 BUN 17 H 11 Creatinine 0.84 0.77 Estim Creat Clear Calc 142.5 155.5 Estimated GFR > 60 > 60 Random Glucose 92 89 Lactic Acid Calcium 9.3 9.2 Magnesium 1.6 1.6 Total Bilirubin 2.1 H 1.5 H Direct Bilirubin AST 57 H 32 ALT 192 H 123 H Alkaline Phosphatase 255 H 193 H C-Reactive Protein 12.35 H Total Protein 7.0 7.1 Albumin 3.6 3.5 Triglycerides Cholesterol LDL Cholesterol, Calc HDL Cholesterol Lipase 972 H Urine Color Dark Yellow Urine Appearance Clear Urine pH 6.0 Ur Specific [place] >= 1.030 H Urine Protein 30 (1+) H Urine Glucose (UA) Negative Urine Ketones Negative Urine Blood Negative Urine Nitrite Negative Ur Leukocyte Esterase Trace H Urine RBC 0-2 Urine WBC 0-5 Ur Squamous Epith Cells 0-2 Urine Bacteria None Seen Hyaline Casts 0-2 12/06/23 06:42 WBC RBC Hgb Hct MCV MCH MCHC RDW Plt Count MPV Immature Gran % (Auto) Neut % (Auto) Lymph % (Auto) [place] % (Auto) Eos % (Auto) Baso % (Auto) Lymph # (Auto) [place] # (Auto) Eos # (Auto) Baso # (Auto) Abs Immat Gran (auto) Absolute Neuts (auto) Absolute Nucleated RBC Nucleated RBC % (auto) Hold Purple Top SEE NOTE PT INR Sodium 143 Potassium 3.2 L D Chloride 104 Carbon Dioxide 29 Anion Gap 13 BUN 7 L Creatinine 0.78 Estim Creat Clear Calc 153.5 Estimated GFR > 60 Random Glucose 96 Lactic Acid Calcium 9.5 Magnesium 1.5 L Total Bilirubin 1.2 H Direct Bilirubin AST 26 ALT 84 H Alkaline Phosphatase 169 H C-Reactive Protein Total Protein 6.9 Albumin 3.4 L Triglycerides Cholesterol LDL Cholesterol, Calc HDL Cholesterol Lipase 95 H Urine Color Urine Appearance Urine pH Ur Specific [place] Urine Protein Urine Glucose (UA) Urine Ketones Urine Blood Urine Nitrite Ur Leukocyte Esterase Urine RBC Urine WBC Ur Squamous Epith Cells Urine Bacteria Hyaline Casts Airway Mallampati Class: III TM Dist: >3cm Neck ROM: Full Loose/Missing/Broken Teeth: Yes and Upper Assessment and Plan Assessment Anesthesia Assessment: Anesthesia Plan Discussed and Chart Reviewed Final Anesthetic Review Family History of Problems with Anesthesia: No History of Problems with Anesthesia: No NPO: Yes ASA Class: III Final Preanesthetic Review: No Changes in Pt Med Stat, Meds/Allgs Chart Reviewed, Consent Obtained/Reviewed and Anes Risks/Benef Reviewed Patient Risk: Intermediate Procedure Risk: Intermediate Anesthetic Plan Anesthetic Plan: GA Disposition: Standard PACU
--- NOTE | 2023-12-06 13:08 | MHC.SHP ---
Pre-Procedural Eval Section A - 24 Hr Update-Section A only Date of Service: 12/06/23 The patient is an INPATIENT: Yes Changes since office visit: No Cold of Flu in the past 2 weeks, No New Medical Problems, No Changes in Medication and No Patient answered all questions The patient has been examined within 24 hours of the surgical procedure. The History & Physical has been completed within 30 days and I have reviewed it.: Yes Section B - Complete if H&P > 30 days Chief Complaint: Abdominal pain Allergies: Allergies Allergy/AdvReac Type Severity Reaction Status Date / Time penicillin G [Penicillin G] Allergy Mild UNKNOWN Verified 12/02/23 16:24 Plan I have reviewed the history and physical and performed a pertinent physical examination on my patient. No changes have occurred unless specified. Time Spent With Patient Time: Total time managing care of this patient today ____ minutes.
--- NOTE | 2023-12-06 15:24 | P.OP_ITS ---
Operative Note Operative Note Date of Service: 12/06/23 Narrative: Preoperative diagnosis: [] Gallstone pancreatitis Postop diagnosis: [] The same Procedure [] laparoscopic cholecystectomy with cholangiogram Surgeon: [] Josue Copier Repair Technician: [] Type of Anesthesia: [] General Indication for surgery: [] Massively corpulent abdomen. Acute cholecystitis with omental adhesions to the gallbladder. Markedly intrahepatic gallbladder. Omental adhesions to the gallbladder. Cholangiogram demonstrated free flow of contrast into the extrahepatic biliary system and duodenal with no obvious filling defects. Technically challenging procedure secondary to the patient's body habitus. Findings: [] Patient brought to the operating room, placed on operative table supine position, after an adequate level of general anesthesia was induced, the patient's abdomen was prepped and draped in usual sterile fashion. Using a supraumbilical curvilinear incision, Hobson technique was used to insufflate abdominal cavity to 15 mm of CO2. Upper midline and right subcostal ports were placed under direct laparoscopic view, the patient placed in reverse Trendelenburg position, and tilted to the left. Findings were as noted above. Gallbladder was grasped using laparoscopic graspers and initially decompressed with an aspirating device secondary to its marked turgidity. It was retracted superiorly and laterally were omental adhesions were swept off the gallbladder. Hilum was approached with the cystic artery and cystic duct were each identified, circumferentially skeletonized, each traced directly into the gallbladder. Cystic artery was clipped proximally x2, distally x1, and transe cted. A choly -cystodochotomy was made and using a cholangiocatheter, cholangiogram was undertaken with findings as noted above. Cystic duct was then clipped proximally x2, distally x1 and transected. Gallbladder which was very intrahepatic was cauterized from the gallbladder fossa using Bovie. Specimen was placed in an Endo-Catch bag, a retrieved through the umbilical port. Abdominal cavity was very copiously irrigated and secured hemostasis. A Kt-Mckeon drain was left in the gallbladder fossa and exited through the right lateral subcostal incision. This was secured the skin using 2-0 nylon. All ports were removed under laparoscopic view. Wounds were closed in the following manner; umbilical wound is fascia reapproximated using interrupted 0 Vicryl sutures. Skin wounds were closed using subcuticular 4-0 Vicryl sutures followed by Steri-Strips and sterile dressings. Wounds were infiltrated 0.5% Marcaine at completion. Sponge, needle, and instrument counts reported correct. Patient tolerated the procedure well and emerged from anesthesia stable condition. EBL minimal
[2023-12-06] MEDS: fentaNYL citrate/PF 100 MCG/2 ML VIAL 50 MCG IVPUSH ×2 (15:27→15:32)
[2023-12-06] MEDS: HYDROmorphone HCl 1 MG/ML SYRINGE IVPUSH ×2 (18:22→22:26)
[2023-12-06] MEDS: cefTRIAXone sodium 1 GM in 0.9 % Sodium Chloride 50 ML IV (21:59)
[2023-12-07 03:23] VITALS: BP 148/84; PULSE 69; RESP 18; TEMP 36.4; O2SAT 99
[2023-12-07] MEDS: HYDROmorphone HCl 1 MG/ML SYRINGE IVPUSH (03:34)
[2023-12-07] MEDS: Lactated Ringers 1,000 ML 150 ML IVCONT (05:36)
[2023-12-07] MEDS: metroNIDAZOLE/NS 500 MG/100 ML PIGGYBACK 100 MG IV (05:36)
[2023-12-07 05:39] LABS: MANUAL DIFF FLAG NO
[2023-12-07 05:42] LABS: Basophils Percent Auto 0.2 % (0-2); Hematocrit 36.7 % (42.0-52.0); Hemoglobin 12.8 g/dl (14.0-18.0); Imm Gran Abs Auto 0.07 X10*3/uL (0.00-0.03); Imm Gran Pct Auto 0.6 % (0.0-0.4); Lymphocytes Absolute Auto 0.8 X10*3/uL (1.2-4.9); Lymphocytes Percent Auto 6.3 % (20-40); Mean Corpuscular HGB Conc 34.9 g/dl (31.0-36.0); Mean Corpuscular Hemoglobin 30.1 pg (27.0-33.0); Mean Corpuscular Volume 86.4 fL (80.0-98.0); Mean Platelet Volume 10.5 fL (9.4-12.4); Monocytes Percent Auto 7.7 % (2-11); Neutrophils Absolute Auto 10.5 x10*3/uL (2.0-8.3); Neutrophils Percent Auto 85.2 % (45-73); Platelet Count 287 X10*3/uL (160-400); Red Blood Count 4.25 X10*6/uL (4.60-5.80); Red Cell Distribution Width 12.2 % (11.0-16.0); White Blood Count 12.3 X10*3/uL (4.8-10.8)
[2023-12-07 06:11] LABS: Alanine Aminotransferase 86 U/L (0-40); Albumin Level 3.2 g/dL (3.5-5.0); Alkaline Phosphatase 143 U/L (39-117); Anion Gap 14 (12-20); Aspartate Amino Transferase 63 U/L (5-37); Bilirubin Total 0.8 mg/dL (0.0-1.0); Blood Urea Nitrogen 16 mg/dL (9-16); Calcium 9.3 mg/dL (8.4-10.2); Carbon Dioxide 25 mmol/L (22-29); Chloride 105 mmol/L (96-108); Creatinine Clr Calc Pharmacy 149.6; Estimated Glomerular Filt Rate > 60; Glucose Random 135 mg/dL (60-115); Potassium 3.5 mmol/L (3.3-5.1); Sodium 140 mmol/L (135-145); Total Protein 6.4 g/dL (6.5-8.0)
[2023-12-07 06:57] VITALS: BP 154/80; PULSE 68; RESP 18; TEMP 36.1; O2SAT 95
[2023-12-07 07:55] VITALS: BP 154/80
[2023-12-07] MEDS: 0.9 % Sodium Chloride Flush 3 ML SYRINGE IVFLUSH (07:55)
[2023-12-07] MEDS: amLODIPine Besylate 5 MG TABLET PO (07:55)
[2023-12-07] MEDS: oxyCODONE HCl Immed Release 5 MG TABLET PO (08:04)
--- NOTE | 2023-12-07 09:04 | P.PNGS_ITS ---
Subjective Subjective Date of Service: 12/07/23 Interval history: Status post cholecystectomy. Aside from incisional discomfort patient is doing well. Tolerated diet. He has been out of bed, doing his incentive spirometry Physical Exam 2 Vital Signs: Vital Signs: Last Vital Signs Temp 97 F 12/07/23 06:57 Pulse 68 12/07/23 06:57 Resp 18 12/07/23 06:57 BP 154/80 H 12/07/23 07:55 Pulse Ox 95 12/07/23 06:57 O2 Del Method Room Air 12/07/23 06:57 O2 Flow Rate 3 12/06/23 16:30 BMI result Body Mass Index 42.0 GI: Other: Abdomen corpulent, soft. All incisions clean dry and intact. BILLY drain minimal serosanguineous output Objective Data Active Medications Acetaminophen (Acetaminophen 325 Mg Tablet) 650 mg PO Q6H PRN PRN Reason: Pain, Mild (Pain Scale 1-3) Last Admin: 12/04/23 19:45 Dose: 650 mg Documented By: DANYEL Amlodipine Besylate (Amlodipine Besylate 5 Mg Tablet) 5 mg PO DAILY [facility]; Protocol Last Admin: 12/07/23 07:55 Dose: 5 mg Documented By: DULCE Hydromorphone HCl (Hydromorphone Hcl 1 Mg/Ml Syringe) 1 mg IVPUSH Q4H PRN; Protocol PRN Reason: Pain, Severe (Pain Scale 7-10) Last Admin: 12/07/23 03:34 Dose: 1 mg Documented By: HALEY Lactated Ringer's (Lr) 1,000 mls @ 150 mls/hr IVCONT .Q6H40M [facility] Last Admin: 12/07/23 05:36 Dose: 150 mls/hr Documented By: HALEY Ceftriaxone Sodium 1 gm/ (Sodium Chloride) 50 mls @ 100 mls/hr IV Q24H [facility] Last Infusion: 12/06/23 22:32 Dose: Infused Documented By: HALEY Metronidazole (Flagyl) 500 mg in 100 mls @ 100 mls/hr IV Q8H [facility] Last Infusion: 12/07/23 06:36 Dose: Infused Documented By: HALEY Losartan Potassium (Losartan Potassium 50 Mg Tablet) 100 mg PO DAILY [facility]; Protocol Last Admin: 12/06/23 07:45 Dose: 100 mg Documented By: AKILA Melatonin (Melatonin 3 Mg Tablet) 6 mg PO BEDTIME PRN PRN Reason: Insomnia Ondansetron HCl (Ondansetron Hcl 4 Mg/2 Ml Vial) 4 mg IVPUSH Q8H PRN PRN Reason: Nausea and Vomiting Last Admin: 12/04/23 13:54 Dose: 4 mg Documented By: MICHAEL Oxycodone HCl (Oxycodone Hcl Immed Release 5 Mg Tablet) 5 mg PO Q4H PRN PRN Reason: Pain, Moderate(Pain Scale 4-6) Last Admin: 12/07/23 08:04 Dose: 5 mg Documented By: DULCE Sodium Chloride (0.9 % Sodium Chloride Flush 3 Ml Syringe) 3 ml IVFLUSH QSHIFT [facility] Last Admin: 12/07/23 07:55 Dose: 3 ml Documented By: DULCE Labs 12/07/23 05:11 12/07/23 05:11 Labs: Laboratory Results - last 24 hr 12/07/23 05:11 MCV 86.4 MCH 30.1 MCHC 34.9 RDW 12.2 Plt Count 287 MPV 10.5 Immature Gran % (Auto) 0.6 H Neut % (Auto) 85.2 H Lymph % (Auto) 6.3 L [place] % (Auto) 7.7 Eos % (Auto) 0.0 Baso % (Auto) 0.2 Lymph # (Auto) 0.8 L [place] # (Auto) 1.0 Eos # (Auto) 0.0 Baso # (Auto) 0.0 Abs Immat Gran (auto) 0.07 H Absolute Neuts (auto) 10.5 H Absolute Nucleated RBC 0.000 Nucleated RBC % (auto) 0.0 Anion Gap 14 Estim Creat Clear Calc 149.6 Estimated GFR > 60 Random Glucose 135 H Calcium 9.3 Total Bilirubin 0.8 AST 63 H ALT 86 H Alkaline Phosphatase 143 H Total Protein 6.4 L Albumin 3.2 L Procedures Date of Service Date of Service: 12/07/23 Progress Note: A&P Assessment and plan (1) Status post laparoscopic cholecystectomy: Status: Acute Plan Doing well. Advance diet as tolerated, out of bed/ambulate/incentive spirometry. If patient to be discharged, we will leave BILLY in and remove it in the office next week. Time Spent With Patient Time: Total time managing care of this patient today ____ minutes. Quality Stroke Does the patient have a stroke diagnosis?: No VTE Prior VTE?: No VTE Risk Level:: Medical - moderate - high VTE Device Contraindication: Treatment Not Indicated VTE Drug Contraindication: N/A - Med Ordered
--- NOTE | 2023-12-07 10:22 | P.DS_ITS ---
DS: Providers Provider Date of Service: 12/07/23 Date of admission: 12/03/23 01:47 Primary care physician: NADIA Rodríguez Consults: 12/03/23 01:58 Consult to General Surgery Routine Consulting Provider: [facility] [place] [facility] Reason for consultation: gallstone pancreatitis 12/03/23 07:32 Consult to Gastroenterology Routine Consulting Provider: Jenny Hobson Reason for consultation: gallstone pancreatitis DS: Diagnosis Discharge Diagnosis (1) Status post laparoscopic cholecystectomy: Status: Acute DS: Summary Hospital Course Hospital Course: HPI: This is a 53-year-old male with pertinent history of hypertension, mixed hyperlipidemia, gastroesophageal reflux disease, BPH who presents to the emergency department for evaluation of abdominal pain. Patient states he has been having intermittent right-sided abdominal discomfort that started 2 weeks prior to presentation. This is worse with p.o. intake. Also has been having intermittent nausea and vomiting. Over the last 2 days, the abdominal pain has been constant, epigastric region and radiates to the back. Associated with multiple episodes of nausea and nonbloody emesis. Unable to tolerate p.o. intake. No fever, chills, chest discomfort, palpitations, shortness of breath, changes in urinary or bowel habits. In the emergency department, serum lipase, transaminases and bilirubin found to be elevated. Imaging with acute pancreatitis Hospital course: Patient was admitted with empiric IV antibiotics for acute gallstone pancreatitis. MRCP was done and GI was consulted > no CBD stone. Patient likely passed CBD stone with improvement in transaminases and bilirubin noted throughout hospital course. Patient underwent laparoscopic cholecystectomy on 12/05 by General surgery. Patient is ambulating and tolerat ing regular diet postoperatively. Patient able to be discharged with close follow-up with General surgery within 1 week for removal of BILLY drain. Status at Discharge Functional status at discharge: independent ambulation Overall status at discharge: patient is back to baseline Time Attestation Discharge Coordination Time (in mins): 35 minutes Quality: Safe Use of Opioids Does Pt have an Active Cancer Diagnosis on the Problem List?: No Quality: Stroke Does the patient have a stroke diagnosis?: No Physical Exam Vital Signs: Vital Signs: Last Vital Signs Temp 97 F 12/07/23 06:57 Pulse 68 12/07/23 06:57 Resp 18 12/07/23 06:57 BP 154/80 H 12/07/23 07:55 Pulse Ox 95 12/07/23 06:57 O2 Del Method Room Air 12/07/23 06:57 O2 Flow Rate 3 12/06/23 16:30 BMI result Body Mass Index 42.0 Gen: in no acute distress HEENT: sclera anicteric, moist mucus membranes Neck: supple Lungs: clear to auscultation bilaterally Heart: regular rate and rhythm, no murmurs Abd: soft, no guarding, no rebound tenderness, BILLY drain in place with serosanguineous fluid Ext: no edema Skin: warm/well-perfused Neuro: alert and oriented x3, no focal findings Psych: appropriate affect DS: Data Data Completed and Pending Pending studies at discharge: Pending at discharge 12/06/23 13:56 Surgical [PTH] Routine Labs on day of discharge: Laboratory Results - last 24 hr 12/07/23 05:11 WBC 12.3 H RBC 4.25 L Hgb 12.8 L Hct 36.7 L MCV 86.4 MCH 30.1 MCHC 34.9 RDW 12.2 Plt Count 287 MPV 10.5 Immature Gran % (Auto) 0.6 H Neut % (Auto) 85.2 H Lymph % (Auto) 6.3 L [place] % (Auto) 7.7 Eos % (Auto) 0.0 Baso % (Auto) 0.2 Lymph # (Auto) 0.8 L [place] # (Auto) 1.0 Eos # (Auto) 0.0 Baso # (Auto) 0.0 Abs Immat Gran (auto) 0.07 H Absolute Neuts (auto) 10.5 H Absolute Nucleated RBC 0.000 Nucleated RBC % (auto) 0.0 Sodium 140 Potassium 3.5 Chloride 105 Carbon Dioxide 25 Anion Gap 14 BUN 16 Creatinine 0.80 Estim Creat Clear Calc 149.6 Estimated GFR > 60 Random Glucose 135 H Calcium 9.3 Total Bilirubin 0.8 AST 63 H ALT 86 H Alkaline Phosphatase 143 H Total Protein 6.4 L Albumin 3.2 L Preliminary micro results at discharge 12/02/23 22:56 Blood Culture - Preliminary Blood - Venous No growth after 48 hours. 12/02/23 22:39 Blood Culture - Preliminary Blood - Venous No growth after 48 hours. Imaging Chest x-ray: Radiologist's impression: ITS Impressions Abdomen/Pelvis CT 12/02/23 23:30 IMPRESSION: 1. Moderate peripancreatic infiltration/fluid consistent with acute pancreatitis. 2. Heterogeneous gallbladder contents possibly related to sludge and/or noncalcified stones. 3. Small bilateral renal calculi. 4. Diverticulosis of the distal descending/proximal sigmoid colon without diverticulitis. Fleischner guidelines were followed. Abdomen Ultrasound 12/03/23 01:35 IMPRESSION: There is echogenic mostly non-shadowing material within the gallbladder which may represent sludge and/or small calculi. There is no sonographic evidence of acute cholecystitis. Cholangiopancreatography MRI 12/03/23 10:20 IMPRESSION: Very Limited study. Findings consistent with acute pancreatitis without an area of walled off necrosis or biliary dilation. There is cholelithiasis. No choledocholithiasis demonstrated on the images available Discharge Plan Discharge Anticipated Discharge Date/Time: 12/07/23 10:20 Patient Disposition: Home, Self-Care Discharge Diagnosis: Acute gallstone pancreatitis Referrals: Arley Salas MD [Physician] - 1 Week Rayray Fox PA [Primary Care Provider] - 1 Week Discharge Medications: New hydrocodone-acetaminophen 5-325 mg tablet 1 tab PO Q4-6H PRN (Reason: pain) Qty: 30 0RF Rx Instructions: Partial Fill upon patient request. Continued amlodipine 5 mg tablet 5 mg PO DAILY hydrochlorothiazide 25 mg tablet 25 mg PO DAILY losartan 100 mg tablet 100 mg PO DAILY Discharge Orders: Discharge Order (Routine); Ordered 12/07/23 Ordered By: Gudelia Odonnell Diet: Advance to usual diet Activity on Discharge: No heavy lifting Stand Alone Forms: Patient Portal Discharge page Print Language: Cam[place]onian Activity Restrictions/Additional Instructions: Ice to wound 20 minutes several times today and tomorrow. May shower in 2 days. Remove outside dressing only. Leave Steri-Strips intact. No strenuous activities. BILLY drain to bulb suction. Call office for follow-up early next week for drain removal please. Care Plan Goals: Follow-up with PCP within 1 week Follow-up with General surgery within 1 week for drain removal Health Concerns: Hypertension Acute gallstone pancreatitis status post lap cholecystectomy Plan of Treatment: As above Assessment: As above
--- NOTE | 2023-12-07 10:47 | MHC.CM.PN ---
PT WILL DC HOME TODAY WITH NO SERVICES VIA PRIVATE TRANSPORT
--- NOTE | 2023-12-07 15:52 | HO.POSTANES ---
Post Anesthesia Evaluation Post Anesthesia Evaluation Date of Service: 12/07/23 Vital Signs: Vital Signs Temp Pulse Resp BP Pulse Ox O2 Del Method 12/07/23 07:55 154/80 H 12/07/23 06:57 97 F 68 18 154/80 H 95 Room Air Anesthesia: General Endotracheal-GETA Mental Status: Awake Pain Control: Satisfactory Nausea/Vomiting: None Hydration: Adequate Anesthesia-Related Issues: No Anes. Related Issues
== END 2023-12-07 13:41 | disposition home or self-care (01) | DRG 263 ==
LOC: HO.ED 23:24 → HO.EDOVER 12-03 01:53 → HO.S3 12-03 15:26
PROVIDERS: Family Medicine; Physician Assistant; Surgery; Admitting Provider Student in an Organized Health Care Education/Training Program; Emergency Provider Emergency Medicine Emergency Medical Services; PCP Physician Assistant Medical; Visit Provider Student in an Organized Health Care Education/Training Program
PROC: 0FT44ZZ Resection of Gallbladder, Percutaneous Endoscopic Approach (ICD-10-PCS; CPT 47562; principal; 2023-12-06 12:50)
DX: K85.10 Biliary acute pancreatitis without necrosis or infection (principal); E66.01 Morbid (severe) obesity due to excess calories; E78.2 Mixed hyperlipidemia; K21.9 Gastro-esophageal reflux disease without esophagitis; N40.0 Benign prostatic hyperplasia without lower urinary tract symptoms; I10 Essential (primary) hypertension; E87.6 Hypokalemia; Z68.41 Body mass index [BMI] 40.0-44.9, adult; Z79.899 Other long term (current) drug therapy
CPT/HCPCS: 36415; 74177; 74181; 76705; 80053; 80061; 81001; 82248; 83605; 83690; 83735; 85025; 85027; 85610; 86140; 87040; 88304; 93005; 99285; C1726; J0696; J1100; J1170; J1836; J2250; J2405; J2704; J2795; J3010; J3480; J7120; Q9967

== ENCOUNTER → 2023-12-02 23:19 | Outpatient (BNV) | payer BC, SELFPAY | PROVIDERS: Admitting Provider Student in an Organized Health Care Education/Training Program; Emergency Provider Emergency Medicine Emergency Medical Services; Visit Provider Internal Medicine Cardiovascular Disease | DX: R94.31 Abnormal electrocardiogram [ECG] [EKG] (principal) | CPT/HCPCS: 93010 ==

== ENCOUNTER → 2023-12-03 01:47 | Outpatient (BNV) | payer BC, SELFPAY | PROVIDERS: Admitting Provider Student in an Organized Health Care Education/Training Program; Emergency Provider Emergency Medicine Emergency Medical Services; Visit Provider Student in an Organized Health Care Education/Training Program | DX: K85.10 Biliary acute pancreatitis without necrosis or infection (principal); Z90.49 Acquired absence of other specified parts of digestive tract | CPT/HCPCS: 99223; 99232; 99239; 99499 ==

== ENCOUNTER → 2023-12-03 01:47 | Outpatient (BNV) | payer BC, SELFPAY | PROVIDERS: Admitting Provider Student in an Organized Health Care Education/Training Program; Emergency Provider Emergency Medicine Emergency Medical Services; Visit Provider Surgery | DX: Z90.49 Acquired absence of other specified parts of digestive tract (principal) | CPT/HCPCS: 47563; 99024; 99222; 99232 ==

== ENCOUNTER → 2023-12-03 01:47 | Outpatient (BNV) | payer BC, SELFPAY | PROVIDERS: Admitting Provider Student in an Organized Health Care Education/Training Program; Emergency Provider Emergency Medicine Emergency Medical Services; Visit Provider Internal Medicine Gastroenterology | DX: K85.10 Biliary acute pancreatitis without necrosis or infection (principal) | CPT/HCPCS: 99223 ==

== ENCOUNTER 2023-12-11 09:45 | Outpatient (AMB) | payer BC, SELFPAY ==
--- NOTE | 2023-12-11 09:43 | A.OFFVIS_ITS ---
Intake Visit Reasons: s/p cholecystectomy drainage tube change Intake Note: Patient here s/p lap isa. Reports incisions healing well. Patient c/o: not much draining from tube. Still taking rx pain meds as needed. 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 Aside from incisional discomfort was improving he is doing well. Starting a diet. Having regular bowel habits. Increasing his activity level. Patient has a BILLY drain which has put scant out over the weekend. [facility] Medical History Hyperlipemia Morbid (severe) obesity due to excess calories Hypertension Surgical History (Updated 12/11/23 @ 09:49 by YESSICA Narvaez) Hx laparoscopic cholecystectomy (12/06/23) Social History Household Members: Family Housing: House Do you presently have visiting nurse or other home services: No Alcohol intake: current Alcohol intake frequency: a few times a week Patient Tobacco Use Status: Never used Tobacco service: No Physical Exam Eyes Other: Anicteric GI Other: Abdomen is soft, very corpulent. All wounds clean dry and intact. BILLY uneventfully removed and dressing applied. Assessment & Plan Assessment & Plan (1) Status post laparoscopic cholecystectomy: Code(s): Z90.49 - Acquired absence of other specified parts of digestive tract Category: Medical Plan Patient would like to return to work on Sunday where he does no strenuous activities. No will be provided with 3 weeks of light duty. All questions answered. He should avoid strenuous activities for next few weeks time. Diet as tolerated. Activity only of walking distally he is fully convalesced. All questions answered. Patient will otherwise follow-up p.r.n. Coding Level of Care Code Global (29727) Diagnoses Status post laparoscopic cholecystectomy Z90.49
== END 2023-12-11 10:42 | disposition home or self-care (01) ==
PROVIDERS: PCP Physician Assistant Medical; Visit Provider Surgery
DX: Z90.49 Acquired absence of other specified parts of digestive tract (principal)
CPT/HCPCS: 99024

== ENCOUNTER → 2023-12-11 09:45 | Outpatient (BNVA) | payer BC, SELFPAY | PROVIDERS: PCP Physician Assistant Medical; Visit Provider Surgery ==

== ENCOUNTER → 2023-12-18 12:55 | Outpatient (BNVA) | payer BC, SELFPAY | PROVIDERS: PCP Physician Assistant Medical; Visit Provider Surgery ==